=== PATIENT | female | born 1965 | race African-American/Black ===

== ENCOUNTER 2017-01-30 16:15 | Inpatient (IN) | payer OTHER ==
[~2017-01-30] VITALS: Ht 160 cm; Wt 57.3 kg
[~2017-01-30 16:15] MED LIST: ALPR0.5T PO; ALPR1TAB6 PO; ASPI-612 PO; CARV6.252 PO; LISI40TA PO; METF500T4 PO; MORP30TA83 PO; MUPI22OI2 TP; NITR0.4T SL; OXYC-328 PO; OXYC30TA PO; PIOG30TA41 PO; SERT50TA PO; SEVE400T PO; VENTOLIN HFA18 GM INH
--- NOTE | 2017-01-30 16:40 | PHYS DOC ---
Past Medical History Past Medical History: CAD, CHF, COPD, Diabetes-Type I, Heart Disease, Hypertension, Renal Failure Past Surgical History: Appendectomy, Hysterectomy Additional Past Surgical Histo: av fistula (left forearm), heart valve repair, 3 L) toe amputations, Alcohol Use: None Drug Use: None Adult General Chief Complaint Chief Complaint: SHORTNESS OF BREATH HPI HPI Patient is a 51 year old female who presents with complaint of shortness of breath. Patient states that her symptoms have been worsening over the past 2-3 days. Patient states that she has end-stage renal disease and has missed dialysis for approximately one week. Patient states that her sister recently which caused a disruption in her normal schedule. Patient denies any associated fevers or productive cough. Patient states that she has noticed swelling in her legs and states that she has had similar symptoms in the past which were attributed to fluid overload. Patient states that she is having severe dyspnea on exertion and is unable to walk normal distances without getting short of breath including across her own living room. Patient denies any chest pain but does state that she is having pain in her legs which she attributes to her swelling. Review of Systems Review of Systems Constitutional: Denies fever or chills [] Eyes: Denies change in visual acuity, redness, or eye pain [] HENT: Denies nasal congestion or sore throat [] Respiratory: Shortness of breath [] Cardiovascular: Dyspnea on exertion, lower extremity edema [] GI: Denies abdominal pain, nausea, vomiting, bloody stools or diarrhea [] : Denies dysuria or hematuria [] Musculoskeletal: Denies back pain or joint pain [] Integument: Right knee abrasion [] Neurologic: Denies headache, focal weakness or sensory changes [] Allergies Allergies Allergies Coded Allergies Type Severity Reaction Last Updated Verified No Known Drug Allergies 08/01/13 No Physical Exam Physical Exam Constitutional: Alert, afebrile, appears in moderate respiratory distress. [] HENT: Normocephalic, atraumatic, bilateral external ears normal, oropharynx moist, no oral exudates, nose normal. [] Eyes: PERRLA, EOMI, conjunctiva normal, no discharge. [] Neck: Normal range of motion, no tenderness, supple, no stridor. [] Cardiovascular:Heart rate regular rhythm, no murmur [] Lungs & Thorax: Moderate restriction of air movement bilaterally, no wheezes, fine rales in the bilateral lung bases [] Abdomen: Bowel sounds normal, soft, no tenderness, no masses, no pulsatile masses. [] Skin: Warm, dry, no erythema, no rash. [] Back: No tenderness, no CVA tenderness. [] Extremities: No tenderness, no cyanosis, no clubbing, ROM intact, 1+ pitting edema bilaterally. [] Neurologic: Alert and oriented X 3, normal motor function, normal sensory function, no focal deficits noted. [] Current Patient Data Vital Signs Vital Signs Date Time Temp Pulse Resp B/P (MAP) Pulse Ox O2 Delivery O2 Flow Rate FiO2 01/30/17 16:25 97.8 97 26 187/90 (122) 99 Nasal Cannula 3.0 97.8 EKG EKG Interpreted by me: Heart rate 94, sinus tachycardia, left axis deviation, normal intervals, no acute ST elevations or depressions [] Radiology/Procedures Radiology/Procedures One view AP chest x-ray interpreted by me: Bilateral pleural effusions, interstitial edema present, cardiomegaly [] Course & Med Decision Making Course & Med Decision Making Pertinent Labs and Imaging studies reviewed. (See chart for details) Patient was initiated on supplemental oxygen in the emergency department. Patient's workup shows evidence of fluid overload in due to lack of dialysis for the past week. The patient will need admission to the hospital due to acute respiratory distress. I spoke with Dr. Christy of nephrology who will consult on patient in hospital and will oversee patient's dialysis. Patient admitted to Dr. Miller. Radhika Disclaimer Radhika Disclaimer This electronic medical record was generated, in whole or in part, using a voice recognition dictation system. Departure Departure Impression: Primary Impression: Fluid overload Additional Impressions: Respiratory distress End stage renal disease Disposition: ADMITTED INPATIENT Admitting Physician: Cristina Miller Condition: GUARDED Referrals: NEMO ROTH (PCP) Problem Qualifiers Primary Impression: Fluid overload Hypervolemia type: unspecified Qualified Codes: E87.70 - Fluid overload, unspecified PHYLLIS GRUBER MD Jan 30, 2017 16:40
[2017-01-30 16:49] LABS: POTASSIUM ISTAT 4.6 mmol/L (3.5-5.0)
[2017-01-30 16:57] LABS: BASO % 1 % (0-3); EOS % 1 % (0-3); HEMATOCRIT 29.7 % (36.0-47.0); HEMOGLOBIN 9.8 g/dL (12.0-15.5); LYMPH # 1.1 x10^3/uL (1.0-4.8); LYMPH % 23 % (24-48); MEAN CORPUSCULAR HEMOGLOBIN 29 pg (25-35); MEAN CORPUSCULAR HGB CONC 33 g/dL (31-37); MEAN CORPUSCULAR VOLUME 87 fL (79-100); MONO % 6 % (0-9); NEUT % 69 % (31-73); PLATELET COUNT 136 x10^3/uL (140-400); RED BLOOD COUNT 3.43 x10^6/uL (3.50-5.40); RED CELL DISTRIBUTION WIDTH 17.9 % (11.5-14.5); WHITE BLOOD COUNT 4.9 x10^3/uL (4.0-11.0)
--- NOTE | 2017-01-30 17:01 | RAD ---
Indication shortness of breath and cough. A single view of the chest was obtained. Comparison is made to an examination 12/27/2016. Postoperative changes are noted as well as a defibrillating and bipolar cardiac pacing device. There is unchanged cardiomegaly. There are changes of congestive heart failure similar to the previous exam. There are bilateral pleural effusions right slightly greater than left also similar to the previous study. A consolidated pneumonia is not seen. IMPRESSION: Stable cardiomegaly. Persistent changes of congestive heart failure with bilateral pleural effusion similar to the previous exam
[2017-01-30 17:08] LABS: CALCIUM 8.8 mg/dL (8.5-10.1); CREATININE 9.5 mg/dL (0.6-1.0); GFR 5.2; POTASSIUM 4.7 mmol/L (3.5-5.1)
[2017-01-30 17:14] LABS: ALBUMIN 3.7 g/dL (3.4-5.0); ALBUMIN/GLOBULIN RATIO 0.7 (1.0-1.7); MAGNESIUM 2.7 mg/dL (1.8-2.4); PHOSPHORUS 7.8 mg/dL (2.6-4.7); TOTAL BILIRUBIN 0.9 mg/dL (0.2-1.0); TOTAL PROTEIN 8.7 g/dL (6.4-8.2)
--- NOTE | 2017-01-30 17:28 | PDOC1 ---
History and Physical Date of Admission Date of Admission 01/30/17 Identification/Chief Complaint Chief Complaint sob Problems: Source Source: Chart review, Patient History of Present Illness History of Present Illness HPI Patient is a 51 year old female who presents with complaint of shortness of breath for 1 week. Pt has CHF, ICD/PPM, copd, SMOKING, ESRD on HD MWF, uncompliant with HD, was just dced here on 12/30/2016 for same reason. pT uses home o2 3l, HER sister 1 week ago, for which , she was not at home for 1 week, not on home o2, not on HD for 1 week. She feels sob, with mild cough,still smoking 1ppd, no fever, chills. C/o bl leg swelling and chronic body and feet pain. still has good urine output no insurance to cover SNF. Past Medical History Cardiovascular: CAD, CHF, HTN, Hyperlipidemia Pulmonary: COPD CENTRAL NERVOUS SYSTEM: CVA Heme/Onc: Anemia NOS Renal/: Chronic renal failure Endocrine: Diabetes Past Surgical History Past Surgical History: Pacemaker, Appendectomy, CABG, Hysterectomy, Other Family History Family History: Diabetes Social History Smoke: 1 pack per day ALCOHOL: none Drugs: None Current Problem List Problem List Problems Medical Problems: (1) End stage renal disease Status: Acute (2) Fluid overload Status: Acute (3) Respiratory distress Status: Acute Allergies Allergies Allergies Coded Allergies Type Severity Reaction Last Updated Verified No Known Drug Allergies 08/01/13 No ROS Review of System CONSTITUTIONAL: No fever or chills EYES: No recent changes SKIN: No rash or itching CARDIOVASCULAR: No chest pain, syncope, palpitations, or edema RESPIRATORY: No SOB or cough GASTROINTESTINAL: No nausea, vomiting or abdominal pain NEUROLOGICAL: No headaches or weakness ENDOCRINE: No cold or heat intolerance GENITOURINARY: No urgency or frequency of urination MUSCULOSKELETAL: No back pain or joint pain LYMPHATICS: No enlarged lymph nodes PSYCHIATRIC: No anxiety or depression Physical Exam Physical Exam GEN.: No apparent distress. Alert and oriented. bl blind. HEENT: Head is normocephalic, atraumatic NECK: Supple. LUNGS: bl decreased bs. HEART: RRR, S1, S2 present. Peripheral pulses intact ABDOMEN: Soft, nontender. Positive bowel sounds. EXTREMITIES: Without any cyanosis. bl leg 1 + edema NEUROLOGIC: Normal speech, normal tone PSYCHIATRIC: Normal affect, normal mood. SKIN: No ulcerations Vitals Vitals Vital Signs Date Time Temp Pulse Resp B/P (MAP) Pulse Ox O2 Delivery O2 Flow Rate FiO2 01/30/17 16:25 97.8 97 26 187/90 (122) 99 Nasal Cannula 3.0 97.8 Labs Labs Laboratory Tests Test 01/30/17 16:36 01/30/17 16:41 White Blood Count 4.9 x10^3/uL (4.0-11.0) Red Blood Count 3.43 x10^6/uL (3.50-5.40) Hemoglobin 9.8 g/dL (12.0-15.5) Hematocrit 29.7 % (36.0-47.0) Mean Corpuscular Volume 87 fL (79-100) Mean Corpuscular Hemoglobin 29 pg (25-35) Mean Corpuscular Hemoglobin Concent 33 g/dL (31-37) Red Cell Distribution Width 17.9 % (11.5-14.5) Platelet Count 136 x10^3/uL (140-400) Neutrophils (%) (Auto) 69 % (31-73) Lymphocytes (%) (Auto) 23 % (24-48) Monocytes (%) (Auto) 6 % (0-9) Eosinophils (%) (Auto) 1 % (0-3) Basophils (%) (Auto) 1 % (0-3) Neutrophils # (Auto) 3.4 x10^3uL (1.8-7.7) Lymphocytes # (Auto) 1.1 x10^3/uL (1.0-4.8) Monocytes # (Auto) 0.3 x10^3/uL (0.0-1.1) Eosinophils # (Auto) 0.0 x10^3/uL (0.0-0.7) Basophils # (Auto) 0.0 x10^3/uL (0.0-0.2) Sodium Level 143 mmol/L (136-145) Potassium Level 4.7 mmol/L (3.5-5.1) Chloride Level 104 mmol/L (98-107) Carbon Dioxide Level 16 mmol/L (21-32) Anion Gap 23 (6-14) 19 mmol/L (6-14) Blood Urea Nitrogen 104 mg/dL (7-20) Creatinine 9.5 mg/dL (0.6-1.0) Estimated GFR (Cockcroft-Gault) 5.2 BUN/Creatinine Ratio 11 (6-20) Glucose Level 147 mg/dL (70-99) 143 mg/dL (70-99) Calcium Level 8.8 mg/dL (8.5-10.1) Phosphorus Level 7.8 mg/dL (2.6-4.7) Magnesium Level 2.7 mg/dL (1.8-2.4) Total Bilirubin 0.9 mg/dL (0.2-1.0) Aspartate Amino Transf (AST/SGOT) 12 U/L (15-37) Alanine Aminotransferase (ALT/SGPT) 15 U/L (14-59) Alkaline Phosphatase 95 U/L (46-116) Total Protein 8.7 g/dL (6.4-8.2) Albumin 3.7 g/dL (3.4-5.0) Albumin/Globulin Ratio 0.7 (1.0-1.7) Bedside Hemoglobin 10.5 g/dL (12-15) Bedside Hematocrit 31 % (36-40) Bedside Sodium 142 mmol/L (135-145) Bedside Potassium 4.6 mmol/L (3.5-5.0) Bedside Chloride 112 mmol/L (98-110) Bedside Total CO2 16 mmol/L (23-32) Bedside Blood Urea Nitrogen 93 mg/dL (8-26) Bedside Creatinine 10.3 mg/dL (0.5-1.4) Bedside Ionized Calcium (Julia) 1.10 mmol/L (1.13-1.32) Laboratory Tests Test 01/30/17 16:36 01/30/17 16:41 White Blood Count 4.9 x10^3/uL (4.0-11.0) Red Blood Count 3.43 x10^6/uL (3.50-5.40) Hemoglobin 9.8 g/dL (12.0-15.5) Hematocrit 29.7 % (36.0-47.0) Mean Corpuscular Volume 87 fL (79-100) Mean Corpuscular Hemoglobin 29 pg (25-35) Mean Corpuscular Hemoglobin Concent 33 g/dL (31-37) Red Cell Distribution Width 17.9 % (11.5-14.5) Platelet Count 136 x10^3/uL (140-400) Neutrophils (%) (Auto) 69 % (31-73) Lymphocytes (%) (Auto) 23 % (24-48) Monocytes (%) (Auto) 6 % (0-9) Eosinophils (%) (Auto) 1 % (0-3) Basophils (%) (Auto) 1 % (0-3) Neutrophils # (Auto) 3.4 x10^3uL (1.8-7.7) Lymphocytes # (Auto) 1.1 x10^3/uL (1.0-4.8) Monocytes # (Auto) 0.3 x10^3/uL (0.0-1.1) Eosinophils # (Auto) 0.0 x10^3/uL (0.0-0.7) Basophils # (Auto) 0.0 x10^3/uL (0.0-0.2) Sodium Level 143 mmol/L (136-145) Potassium Level 4.7 mmol/L (3.5-5.1) Chloride Level 104 mmol/L (98-107) Carbon Dioxide Level 16 mmol/L (21-32) Anion Gap 23 (6-14) 19 mmol/L (6-14) Blood Urea Nitrogen 104 mg/dL (7-20) Creatinine 9.5 mg/dL (0.6-1.0) Estimated GFR (Cockcroft-Gault) 5.2 BUN/Creatinine Ratio 11 (6-20) Glucose Level 147 mg/dL (70-99) 143 mg/dL (70-99) Calcium Level 8.8 mg/dL (8.5-10.1) Phosphorus Level 7.8 mg/dL (2.6-4.7) Magnesium Level 2.7 mg/dL (1.8-2.4) Total Bilirubin 0.9 mg/dL (0.2-1.0) Aspartate Amino Transf (AST/SGOT) 12 U/L (15-37) Alanine Aminotransferase (ALT/SGPT) 15 U/L (14-59) Alkaline Phosphatase 95 U/L (46-116) Total Protein 8.7 g/dL (6.4-8.2) Albumin 3.7 g/dL (3.4-5.0) Albumin/Globulin Ratio 0.7 (1.0-1.7) Bedside Hemoglobin 10.5 g/dL (12-15) Bedside Hematocrit 31 % (36-40) Bedside Sodium 142 mmol/L (135-145) Bedside Potassium 4.6 mmol/L (3.5-5.0) Bedside Chloride 112 mmol/L (98-110) Bedside Total CO2 16 mmol/L (23-32) Bedside Blood Urea Nitrogen 93 mg/dL (8-26) Bedside Creatinine 10.3 mg/dL (0.5-1.4) Bedside Ionized Calcium (Julia) 1.10 mmol/L (1.13-1.32) VTE Prophylaxis Ordered VTE Prophylaxis Devices: Yes VTE Pharmacological Prophylaxi: Yes Assessment/Plan Assessment/Plan 1. sob, pulmonary edema with CHF exacerbation, systolic with EF 30% 2012 , MISSing HD 1 week 2. SYSTolic CHF with PPM/ICD 3. ESRD on HD MWF 4. Afib, s/p ablation and pacer placement 5. DM2, not on insulin 6. HTN 7. COPD , tobaccoism 8. anemia: 2/2 ESRD 9. chronic body pain 10. umbilical hernia: easily reducible. 11. Leg pain, peripharal neuropathy 12. protein malnutrition 13. UNCOMPLiance of medical care 14. bl blind 15. chronic constipation on opiods plan: renal consult , need HD SW , unfortunately , no insurance to cover SNF, but cover HD transportation [place] cont home meds stool softner dvt ppx PTOT albuterol prn SSI. admit >2night SARAHI PHILLIPS MD Jan 30, 2017 17:27
[2017-01-30] MEDS ORDERED: NITROGLYCERIN SUBLINGUAL 0.4 MG BOTTLE OF 25. SL PRN (17:45)
[2017-01-30] MEDS ORDERED: ONDANSETRON PF 4 MG/2 ML VIAL. IV PRN (17:45)
[2017-01-30] MEDS ORDERED: hydrALAZINE 20 MG/ML VIAL. IVP PRN (17:45)
[2017-01-30] MEDS ORDERED: ACETAMINOPHEN 325 MG TABLET. PO PRN (17:45)
[2017-01-30] MEDS ORDERED: ALBUTEROL SULFATE 2.5 MG/3 ML NEBU. NEB PRN (17:45)
[2017-01-30] MEDS ORDERED: DEXTROSE 50% 25 GM / 50ML DISP.SYRIN. IV PRN (17:45)
[2017-01-30 18:00] VITALS: BP 176/87
[2017-01-30] MEDS ORDERED: metFORMIN 500 MG TABLET PO SCH (18:00)
[2017-01-30] MEDS: CARVEDILOL 6.25 MG TABLET. PO SCH (18:15)
[2017-01-30] MEDS: MORPHINE SULFATE 2 MG/ML DISP.SYRIN. IV PRN ×2 (18:15→20:23)
[2017-01-30] MEDS: SEVELAMER CARBONATE 800 MG TABLET. PO SCH (18:15)
[2017-01-30] MEDS: ALPRAZolam 0.5 MG TABLET PO SCH (19:40)
[2017-01-30] MEDS: oxyCODONE/APAP 10/325 1 TAB TABLET PO PRN (20:28)
[2017-01-30] MEDS: HEPARIN PF for SUB-Q USE 5,000 UNIT/0.5 ML VIAL. SQ SCH (20:29)
[2017-01-31] VITALS (7 sets, daily range): BP systolic 122–152; BP diastolic 71–92
[2017-01-31] MEDS: MORPHINE SULFATE 2 MG/ML DISP.SYRIN. IV PRN ×6 (00:47→22:16)
[2017-01-31] MEDS: oxyCODONE/APAP 10/325 1 TAB TABLET PO PRN (05:57)
[2017-01-31] MEDS: HEPARIN PF for SUB-Q USE 5,000 UNIT/0.5 ML VIAL. SQ SCH ×3 (05:58→22:17)
--- NOTE | 2017-01-31 06:07 | EKG ---
[facility] [address] [place] [address] Test Date: 2017-01-30 Test Time: 16:42:19 Pat Name: ORAL MAGALLANES Department: Room: 521 1 Gender: F Bottom Saw Operator: : 1965 Requested By: PHYLLIS GRUBER Order Number: [id number] Reading MD: Conrad Ledezma Measurements Intervals [place] Rate: 94 P: 58 OR: 170 QRS: -56 QRSD: 94 T: 99 QT: 392 QTc: 490 Interpretive Statements SINUS RHYTHM LEFT ATRIAL ABNORMALITY ABNORMAL LEFT AXIS DEVIATION LOW LIMB LEAD VOLTAGE QRS(T) CONTOUR ABNORMALITY CONSISTENT WITH ANTEROLATERAL INFARCT PROBABLY OLD CONSISTENT WITH INFERIOR INFARCT PROBABLY OLD RI6.01 Unconfirmed report Compared to ECG 12/23/2016 19:04:59 No significant changes Electronically Signed On 02-05-2017 9:21:36 CDT by Conrad Ledezma
[2017-01-31 06:14] LABS: BASO % 1 % (0-3); EOS % 3 % (0-3); HEMATOCRIT 28.5 % (36.0-47.0); HEMOGLOBIN 9.1 g/dL (12.0-15.5); LYMPH # 1.3 x10^3/uL (1.0-4.8); LYMPH % 27 % (24-48); MEAN CORPUSCULAR HEMOGLOBIN 28 pg (25-35); MEAN CORPUSCULAR HGB CONC 32 g/dL (31-37); MEAN CORPUSCULAR VOLUME 88 fL (79-100); MONO % 6 % (0-9); NEUT % 63 % (31-73); PLATELET COUNT 132 x10^3/uL (140-400); RED BLOOD COUNT 3.25 x10^6/uL (3.50-5.40); WHITE BLOOD COUNT 4.7 x10^3/uL (4.0-11.0)
[2017-01-31 06:29] LABS: CALCIUM 8.6 mg/dL (8.5-10.1); CREATININE 9.6 mg/dL (0.6-1.0); GFR 5.2
--- NOTE | 2017-01-31 07:29 | ACF ---
Admission Forms Criteria RENAL FAILURE, CHRONIC Clinical Indications for Admission to Inpatient Care (Place 'X' for any and all applicable criteria): Admission is indicated for ANY ONE of the following (1)(2)(3)(4)(5): [X]I. Inpatient admission required rather than observation care (Use Renal Failure, Chronic: Observation Care Criteria as appropriate) because of ANY ONE of the following: [X]a) Volume overload or uremic symptoms (eg, clinically significant pulmonary edema, hypertension, pericarditis, acidosis) too severe for, or not responsive (eg, for over 24 hours) to emergency department or observation care dialysis or treatment regimen (11) [ ]b) Hemodynamic instability that is severe or persistent [ ]c) Respiratory distress that is severe or persistent (11) [ ]d) Clinically significant electrolyte abnormality that requires inpatient care (eg,hyperkalemia with severe ECG findings)[B] [ ]e) Supplement O2 or respiratory therapy for over 24hrs that is performable only in acute inpatient setting [ ]f) Continuous IV infusion of anticoagulation, platelet inhibitor, vasoactive, or Antiarrhythmic medication (15), [ ]g) Pulmonary artery catheter monitoring [ ]h) Temporary pacemaker placement [ ]i) Emergent pericardiocentesis [ ]j) Other condition, treatment or monitoring requiring inpatient admission [ ]II. Unexplained syncope [A] [ ]III. Recurrent seizures [ ]IV. Severe infections not treatable in outpatient setting (eg, peritonitis)(9 ) [ ]V. Cardiac arrhythmias of immediate concern [ ]. Encephalopathy [ ]VII.Bleeding abnormalities (eg, platelet dysfunction) with active (eg, gastrointestinal) bleeding Extended stay beyond goal length of stay may be needed for (3)(4)(35)(36): [ ]a) Continuing uremic complications [ ]b) Comorbidities or complications The original [facility] content created by [employer] has been revised. The portions of the content which have been revised are identified through the use of italic text or in bold, and [facility] has neither reviewed nor approved the modified material. All other unmodified content is copyright [employer]. Please see references footnoted in the original [facility] [facility] edition 2016 Admission Criteria Met?: Yes EZ ALBERT Jan 31, 2017 07:29
[2017-01-31] MEDS: CARVEDILOL 6.25 MG TABLET. PO SCH ×2 (08:00→17:25)
[2017-01-31] MEDS: INSULIN ASPART 300 UNITS/3 ML INSULN.PEN SQ SCH ×3 (08:00→17:00)
[2017-01-31] MEDS: SEVELAMER CARBONATE 800 MG TABLET. PO SCH ×2 (08:00→17:24)
[2017-01-31] MEDS ORDERED: LIDOCAINE 1% PF 2 ML VIAL. ID STA (08:51)
[2017-01-31] MEDS: PIOGLITAZONE 15 MG TABLET. PO SCH (09:00)
[2017-01-31] MEDS ORDERED: diphenhydrAMINE 50 MG/ML VIAL IV PRN ×2 (09:00)
[2017-01-31] MEDS ORDERED: DIALYSIS PATIENT. MC PRN (09:00)
[2017-01-31] MEDS ORDERED: IV NORMAL SALINE 1000ML BAG 1,000 ML IV PRN ×2 (09:00)
[2017-01-31] MEDS: ALPRAZolam 0.5 MG TABLET PO SCH ×3 (09:00→22:16)
--- NOTE | 2017-01-31 10:22 | PDOC2 ---
CONSULT Date of Consult Date of Consult DATE: 01/31/17 TIME: 10:19 Reason for Consult Reason for Consult: ESRD Referring Physician Referring Physician: Dr Panda Identification/Chief Complaint Chief Complaint sob Problems: Source Source: Chart review, Patient History of Present Illness Reason for Visit: as dictated Past Medical History Cardiovascular: CAD, CHF, HTN, Hyperlipidemia Pulmonary: COPD CENTRAL NERVOUS SYSTEM: CVA Heme/Onc: Anemia NOS Musculoskeletal: Osteoarthritis, Other Renal/: Chronic renal failure Endocrine: Diabetes Past Surgical History Past Surgical History: Pacemaker, Appendectomy, CABG, Hysterectomy, Other Family History Family History: Diabetes Social History 1 pack per day ALCOHOL: none Drugs: None Lives: Alone Current Problem List Problem List Problems Medical Problems: (1) End stage renal disease Status: Acute (2) Fluid overload Status: Acute (3) Respiratory distress Status: Acute Current Medications Current Medications Current Medications Acetaminophen (Tylenol) 650 mg PRN Q6HRS PRN PO FEVER; Start 01/30/17 at 17:45 Ondansetron HCl (Zofran) 4 mg PRN Q6HRS PRN IV NAUSEA/VOMITING; Start 01/30/17 at 17:45 Morphine Sulfate 2 mg PRN Q2HR PRN IV PAIN Last administered on 01/31/17 08:12 ; Start 01/30/17 at 17:45 Tramadol HCl (Ultram) 50 mg PRN Q6HRS PRN PO PAIN; Start 01/30/17 at 17:45 Hydralazine HCl (Apresoline) 10 mg PRN Q4HRS PRN IVP ELEVATED BP, SEE COMMENTS ; Start 01/30/17 at 17:45 Docusate Sodium (Colace) 100 mg PRN DAILY PRN PO CONSTIPATION; Start 01/30/17 at 17:45 Heparin Sodium (Porcine) (Heparin Sq) 5,000 unit Q8HRS SQ Last administered on 01/31/17 05:58; Start 01/30/17 at 22:00 Alprazolam (Xanax) 0.5 mg BID PO Last administered on 01/30/17 19:40; Start 01/30/17 at 21:00 Aspirin (Ecotrin) 81 mg DAILYWBKFT PO ; Start 01/31/17 at 08:00 Carvedilol (Coreg) 6.25 mg BIDWMEALS PO Last administered on 01/30/17 18:15; Start 01/30/17 at 18:00 Lisinopril (Prinivil) 20 mg DAILY PO ; Start 01/31/17 at 09:00 Metformin HCl (Glucophage) 500 mg BIDWMEALS PO ; Start 01/30/17 at 18:00; Stop at 18:00; Status DC Nitroglycerin (Nitrostat) 0.4 mg PRN Q5MIN PRN SL CHEST PAIN; Start 01/30/17 at 17:45 Oxycodone/ Acetaminophen (Percocet 10/325) 1 tab PRN Q6HRS PRN PO PAIN Last administered on 01/31/17 05:57; Start 01/30/17 at 17:45 Sertraline HCl (Zoloft) 50 mg DAILY PO ; Start 01/31/17 at 09:00 Pioglitazone HCl (Actos) 30 mg DAILY PO ; Start 01/31/17 at 09:00 Sevelamer Carbonate (Renvela) 400 mg BIDWMEALS PO Last administered on 18:15; Start 01/30/17 at 18:00 Insulin Aspart (NovoLOG) 0-9 UNITS TIDWMEALS SQ ; Start 01/31/17 at 08:00 Dextrose (Dextrose 50%-Water Syringe) 12.5 gm PRN Q15MIN PRN IV SEE COMMENTS; Start 01/30/17 at 17:45 Albuterol Sulfate (Ventolin Neb Soln) 2.5 mg PRN Q4HRS PRN NEB COUGH; Start 01/30/17 at 17:45 Sodium Chloride 1,000 ml @ 1,000 mls/hr Q1H PRN IV hypotension; Start 01/31/17 at 09:00; Stop 01/31/17 at 16:00 Diphenhydramine HCl (Benadryl) 25 mg 1X PRN PRN IV ITCHING; Start 01/31/17 at 09 :00; Stop 01/31/17 at 16:00 Diphenhydramine HCl (Benadryl) 25 mg 1X PRN PRN IV ITCHING; Start 01/31/17 at 09 :00; Stop 01/31/17 at 16:00 Sodium Chloride 1,000 ml @ 400 mls/hr Q2H30M PRN IV PATENCY; Start 01/31/17 at 09:00; Stop 01/31/17 at 16:00 Info (PHARMACY MONITORING -- do not chart) 1 each PRN DAILY PRN MC SEE COMMENTS ; Start 01/31/17 at 09:00 Lidocaine HCl (Xylocaine-Mpf 1% Vial) 0.5 ml 1X STAT ID Last administered on t 09:40; Start 01/31/17 at 08:51; Stop 01/31/17 at 08:56; Status DC Active Scripts Active Renagel (Sevelamer Hcl) 400 Mg Tablet 400 Mg PO BID Aspirin Ec (Aspirin) 81 Mg Tablet.dr 81 Mg PO DAILYWBKFT Reported Xanax (Alprazolam) 0.5 Mg Tablet 1 Tab PO BID Percocet 10-325 Mg Tablet (Oxycodone/Acetaminophen) 1 Each Tablet 1 Tab PO PRN Q6HRS PRN Mupirocin Ointment (Mupirocin) 22 Gm Oint...g. 1 Bradly TP BID PRN Nitrostat (Nitroglycerin) 0.4 Mg Tab.subl 0.4 Mg SL PRN Q5MIN PRN Actos (Pioglitazone Hcl) 30 Mg Tablet 1 Tab PO DAILY Zoloft (Sertraline Hcl) 50 Mg Tablet 1 Tab PO DAILY Carvedilol 6.25 Mg Tablet 1 Tab PO BID Lisinopril 40 Mg Tablet 0.5 Tab PO DAILY Metformin Hcl 500 Mg Tablet 1 Tab PO BID Allergies Allergies: Coded Allergies: No Known Drug Allergies (Unverified , 08/01/13) ROS Review of System GEN: no Fevers no Chills EYES: no Visual Complaints ENT: no EN Drainage no Hearing deficiets CVS: + Orthopnea no CP RESP: + SOB + ESPINAL GI: no Nausea no Vomiting : no Dysuria no Urgency HEME: no easy bruising no Palp Ly Nodes NEURO no Focal Weakness no Sz PSYCH: no Suicidal Ideation no Depression SKIN: no Rashes ENDO: no Polyuria or Polydipsia no Hot/Cold Intolerance MU SK: no Arthralgia no Myalgia Physical Exam Physical Exam General Appearance: Awake Alert Oriented x 3 In no Distress Eyes: VIsion Unchanged Conjunctiva Normal EN: No EN Drainage Mucous Memb. moist Neck: min JVD + JVP Supple no Thyromegaly CVS: S1 S2 + Murmur No Gallop No Rub + Edema Resp: frank Rales no Rhonchi no Acc. Muscle use GI: BAS +ve NO Bruit Non Tender Non Distended : no CVA tenderness; no Suprapubic Tenderness SKIN: no Rashes Breast Exam deferred Mu.Sk: Adequate ROM no Muscle Atrophy Heme: Unable to palpate Obvious LAD no Splenomegaly NEURO: Good Strength and Tone Cranial Nerves II - XII grossly intact Psych: no Depressed no Active hallucination Vital Signs Vital Signs Date Time Temp Pulse Resp B/P (MAP) Pulse Ox O2 Delivery O2 Flow Rate FiO2 01/31/17 08:12 18 Nasal Cannula 3.0 01/31/17 07:25 100 01/31/17 07:00 97.3 80 144/90 (108) 97.3 Assessment & Plan ESRD - Seen on HD michelle well sofar: Vital on HD : 153/82 78 afeb Dialysis as below F 180 NR 3.0 Hrs 2 K 2.5 Ca 140 Na 40 HC03 Qb 350 + Qd 500+ Heparin 0 Units Uf 4 Kgs or to dry weight as tolerated May give 25-50 gms of 25% Albumin if needed to maintain Hemodynamic stability Treatment plan reviewed and discussed with search engine optimizer Anemia: Epogen Transfuse with next HD as needed. HTN: Current BP meds reviewed. See orders for changes. Bone & Mineral: follow phos and alter binder regimen as needed SOB/ hypervolemia - due to missed HD - Uf wtih Hd, extra HD in am Discussed Plan of Care and prognosis etc. at length withpt Labs Labs Laboratory Tests Test 01/30/17 16:36 01/30/17 16:41 01/30/17 18:16 01/30/17 20:31 White Blood Count 4.9 x10^3/uL (4.0-11.0) Red Blood Count 3.43 x10^6/uL (3.50-5.40) Hemoglobin 9.8 g/dL (12.0-15.5) Hematocrit 29.7 % (36.0-47.0) Mean Corpuscular Volume 87 fL (79-100) Mean Corpuscular Hemoglobin 29 pg (25-35) Mean Corpuscular Hemoglobin Concent 33 g/dL (31-37) Red Cell Distribution Width 17.9 % (11.5-14.5) Platelet Count 136 x10^3/uL (140-400) Neutrophils (%) (Auto) 69 % (31-73) Lymphocytes (%) (Auto) 23 % (24-48) Monocytes (%) (Auto) 6 % (0-9) Eosinophils (%) (Auto) 1 % (0-3) Basophils (%) (Auto) 1 % (0-3) Neutrophils # (Auto) 3.4 x10^3uL (1.8-7.7) Lymphocytes # (Auto) 1.1 x10^3/uL (1.0-4.8) Monocytes # (Auto) 0.3 x10^3/uL (0.0-1.1) Eosinophils # (Auto) 0.0 x10^3/uL (0.0-0.7) Basophils # (Auto) 0.0 x10^3/uL (0.0-0.2) Sodium Level 143 mmol/L (136-145) Potassium Level 4.7 mmol/L (3.5-5.1) Chloride Level 104 mmol/L (98-107) Carbon Dioxide Level 16 mmol/L (21-32) Anion Gap 23 (6-14) 19 mmol/L (6-14) Blood Urea Nitrogen 104 mg/dL (7-20) Creatinine 9.5 mg/dL (0.6-1.0) Estimated GFR (Cockcroft-Gault) 5.2 BUN/Creatinine Ratio 11 (6-20) Glucose Level 147 mg/dL (70-99) 143 mg/dL (70-99) Calcium Level 8.8 mg/dL (8.5-10.1) Phosphorus Level 7.8 mg/dL (2.6-4.7) Magnesium Level 2.7 mg/dL (1.8-2.4) Total Bilirubin 0.9 mg/dL (0.2-1.0) Aspartate Amino Transf (AST/SGOT) 12 U/L (15-37) Alanine Aminotransferase (ALT/SGPT) 15 U/L (14-59) Alkaline Phosphatase 95 U/L (46-116) Total Protein 8.7 g/dL (6.4-8.2) Albumin 3.7 g/dL (3.4-5.0) Albumin/Globulin Ratio 0.7 (1.0-1.7) Bedside Hemoglobin 10.5 g/dL (12-15) Bedside Hematocrit 31 % (36-40) Bedside Sodium 142 mmol/L (135-145) Bedside Potassium 4.6 mmol/L (3.5-5.0) Bedside Chloride 112 mmol/L (98-110) Bedside Total CO2 16 mmol/L (23-32) Bedside Blood Urea Nitrogen 93 mg/dL (8-26) Bedside Creatinine 10.3 mg/dL (0.5-1.4) Bedside Ionized Calcium (Julia) 1.10 mmol/L (1.13-1.32) Glucose (Fingerstick) 167 mg/dL (70-99) 207 mg/dL (70-99) Test 01/31/17 05:25 01/31/17 05:35 01/31/17 07:44 Sodium Level 142 mmol/L (136-145) Potassium Level 5.0 mmol/L (3.5-5.1) Chloride Level 106 mmol/L (98-107) Carbon Dioxide Level 14 mmol/L (21-32) Anion Gap 22 (6-14) Blood Urea Nitrogen 107 mg/dL (7-20) Creatinine 9.6 mg/dL (0.6-1.0) Estimated GFR (Cockcroft-Gault) 5.2 Glucose Level 123 mg/dL (70-99) Calcium Level 8.6 mg/dL (8.5-10.1) White Blood Count 4.7 x10^3/uL (4.0-11.0) Red Blood Count 3.25 x10^6/uL (3.50-5.40) Hemoglobin 9.1 g/dL (12.0-15.5) Hematocrit 28.5 % (36.0-47.0) Mean Corpuscular Volume 88 fL (79-100) Mean Corpuscular Hemoglobin 28 pg (25-35) Mean Corpuscular Hemoglobin Concent 32 g/dL (31-37) Red Cell Distribution Width 18.0 % (11.5-14.5) Platelet Count 132 x10^3/uL (140-400) Neutrophils (%) (Auto) 63 % (31-73) Lymphocytes (%) (Auto) 27 % (24-48) Monocytes (%) (Auto) 6 % (0-9) Eosinophils (%) (Auto) 3 % (0-3) Basophils (%) (Auto) 1 % (0-3) Neutrophils # (Auto) 3.0 x10^3uL (1.8-7.7) Lymphocytes # (Auto) 1.3 x10^3/uL (1.0-4.8) Monocytes # (Auto) 0.3 x10^3/uL (0.0-1.1) Eosinophils # (Auto) 0.2 x10^3/uL (0.0-0.7) Basophils # (Auto) 0.0 x10^3/uL (0.0-0.2) Glucose (Fingerstick) 118 mg/dL (70-99) Laboratory Tests Test 01/30/17 16:36 01/30/17 16:41 01/30/17 18:16 01/30/17 20:31 White Blood Count 4.9 x10^3/uL (4.0-11.0) Red Blood Count 3.43 x10^6/uL (3.50-5.40) Hemoglobin 9.8 g/dL (12.0-15.5) Hematocrit 29.7 % (36.0-47.0) Mean Corpuscular Volume 87 fL (79-100) Mean Corpuscular Hemoglobin 29 pg (25-35) Mean Corpuscular Hemoglobin Concent 33 g/dL (31-37) Red Cell Distribution Width 17.9 % (11.5-14.5) Platelet Count 136 x10^3/uL (140-400) Neutrophils (%) (Auto) 69 % (31-73) Lymphocytes (%) (Auto) 23 % (24-48) Monocytes (%) (Auto) 6 % (0-9) Eosinophils (%) (Auto) 1 % (0-3) Basophils (%) (Auto) 1 % (0-3) Neutrophils # (Auto) 3.4 x10^3uL (1.8-7.7) Lymphocytes # (Auto) 1.1 x10^3/uL (1.0-4.8) Monocytes # (Auto) 0.3 x10^3/uL (0.0-1.1) Eosinophils # (Auto) 0.0 x10^3/uL (0.0-0.7) Basophils # (Auto) 0.0 x10^3/uL (0.0-0.2) Sodium Level 143 mmol/L (136-145) Potassium Level 4.7 mmol/L (3.5-5.1) Chloride Level 104 mmol/L (98-107) Carbon Dioxide Level 16 mmol/L (21-32) Anion Gap 23 (6-14) 19 mmol/L (6-14) Blood Urea Nitrogen 104 mg/dL (7-20) Creatinine 9.5 mg/dL (0.6-1.0) Estimated GFR (Cockcroft-Gault) 5.2 BUN/Creatinine Ratio 11 (6-20) Glucose Level 147 mg/dL (70-99) 143 mg/dL (70-99) Calcium Level 8.8 mg/dL (8.5-10.1) Phosphorus Level 7.8 mg/dL (2.6-4.7) Magnesium Level 2.7 mg/dL (1.8-2.4) Total Bilirubin 0.9 mg/dL (0.2-1.0) Aspartate Amino Transf (AST/SGOT) 12 U/L (15-37) Alanine Aminotransferase (ALT/SGPT) 15 U/L (14-59) Alkaline Phosphatase 95 U/L (46-116) Total Protein 8.7 g/dL (6.4-8.2) Albumin 3.7 g/dL (3.4-5.0) Albumin/Globulin Ratio 0.7 (1.0-1.7) Bedside Hemoglobin 10.5 g/dL (12-15) Bedside Hematocrit 31 % (36-40) Bedside Sodium 142 mmol/L (135-145) Bedside Potassium 4.6 mmol/L (3.5-5.0) Bedside Chloride 112 mmol/L (98-110) Bedside Total CO2 16 mmol/L (23-32) Bedside Blood Urea Nitrogen 93 mg/dL (8-26) Bedside Creatinine 10.3 mg/dL (0.5-1.4) Bedside Ionized Calcium (Julia) 1.10 mmol/L (1.13-1.32) Glucose (Fingerstick) 167 mg/dL (70-99) 207 mg/dL (70-99) Test 01/31/17 05:25 01/31/17 05:35 01/31/17 07:44 Sodium Level 142 mmol/L (136-145) Potassium Level 5.0 mmol/L (3.5-5.1) Chloride Level 106 mmol/L (98-107) Carbon Dioxide Level 14 mmol/L (21-32) Anion Gap 22 (6-14) Blood Urea Nitrogen 107 mg/dL (7-20) Creatinine 9.6 mg/dL (0.6-1.0) Estimated GFR (Cockcroft-Gault) 5.2 Glucose Level 123 mg/dL (70-99) Calcium Level 8.6 mg/dL (8.5-10.1) White Blood Count 4.7 x10^3/uL (4.0-11.0) Red Blood Count 3.25 x10^6/uL (3.50-5.40) Hemoglobin 9.1 g/dL (12.0-15.5) Hematocrit 28.5 % (36.0-47.0) Mean Corpuscular Volume 88 fL (79-100) Mean Corpuscular Hemoglobin 28 pg (25-35) Mean Corpuscular Hemoglobin Concent 32 g/dL (31-37) Red Cell Distribution Width 18.0 % (11.5-14.5) Platelet Count 132 x10^3/uL (140-400) Neutrophils (%) (Auto) 63 % (31-73) Lymphocytes (%) (Auto) 27 % (24-48) Monocytes (%) (Auto) 6 % (0-9) Eosinophils (%) (Auto) 3 % (0-3) Basophils (%) (Auto) 1 % (0-3) Neutrophils # (Auto) 3.0 x10^3uL (1.8-7.7) Lymphocytes # (Auto) 1.3 x10^3/uL (1.0-4.8) Monocytes # (Auto) 0.3 x10^3/uL (0.0-1.1) Eosinophils # (Auto) 0.2 x10^3/uL (0.0-0.7) Basophils # (Auto) 0.0 x10^3/uL (0.0-0.2) Glucose (Fingerstick) 118 mg/dL (70-99) Images Images IMPRESSION: Stable cardiomegaly. Persistent changes of congestive heart failure with bilateral pleural effusion similar to the previous exam VINCENZO PLUMMER MD Jan 31, 2017 10:22
[2017-01-31] MEDS: SERTRALINE 50 MG TABLET. PO SCH (14:32)
[2017-01-31] MEDS: ASPIRIN ENTERIC COATED 81 MG TABLET.DR. PO SCH (14:33)
[2017-01-31] MEDS: LISINOPRIL 20 MG TABLET PO SCH (14:33)
--- NOTE | 2017-01-31 15:24 | PDOC ---
PROGRESS NOTES Chief Complaint Chief Complaint 1. sob, pulmonary edema with CHF exacerbation, systolic with EF 30% 2012 , MISSing HD 1 week 2. SYSTolic CHF with PPM/ICD 3. ESRD on HD MWF 4. Afib, s/p ablation and pacer placement 5. DM2, not on insulin 6. HTN 7. COPD , tobaccoism 8. anemia: 2/2 ESRD 9. chronic body pain 10. umbilical hernia: easily reducible. 11. Leg pain, peripharal neuropathy 12. protein malnutrition 13. UNCOMPLiance of medical care 14. bl blind 15. chronic constipation on opiods History of Present Illness History of Present Illness Pt seen and examined on HD DW RN Pt vomitting Vitals Vitals Vital Signs Date Time Temp Pulse Resp B/P (MAP) Pulse Ox O2 Delivery O2 Flow Rate FiO2 01/31/17 15:02 18 Nasal Cannula 2.0 01/31/17 14:33 77 150/88 01/31/17 13:40 97.9 97 97.9 Physical Exam General: Alert, Oriented X3 Heart: Regular rate, Normal S1, Normal S2 Lungs: Clear Abdomen: Other (nauseated, decreased bowel sounds) Extremities: No clubbing, No cyanosis Skin: No rashes, No breakdown Labs LABS Laboratory Tests Test 01/30/17 16:36 01/30/17 16:41 01/30/17 18:16 01/30/17 20:31 White Blood Count 4.9 x10^3/uL (4.0-11.0) Red Blood Count 3.43 x10^6/uL (3.50-5.40) Hemoglobin 9.8 g/dL (12.0-15.5) Hematocrit 29.7 % (36.0-47.0) Mean Corpuscular Volume 87 fL (79-100) Mean Corpuscular Hemoglobin 29 pg (25-35) Mean Corpuscular Hemoglobin Concent 33 g/dL (31-37) Red Cell Distribution Width 17.9 % (11.5-14.5) Platelet Count 136 x10^3/uL (140-400) Neutrophils (%) (Auto) 69 % (31-73) Lymphocytes (%) (Auto) 23 % (24-48) Monocytes (%) (Auto) 6 % (0-9) Eosinophils (%) (Auto) 1 % (0-3) Basophils (%) (Auto) 1 % (0-3) Neutrophils # (Auto) 3.4 x10^3uL (1.8-7.7) Lymphocytes # (Auto) 1.1 x10^3/uL (1.0-4.8) Monocytes # (Auto) 0.3 x10^3/uL (0.0-1.1) Eosinophils # (Auto) 0.0 x10^3/uL (0.0-0.7) Basophils # (Auto) 0.0 x10^3/uL (0.0-0.2) Sodium Level 143 mmol/L (136-145) Potassium Level 4.7 mmol/L (3.5-5.1) Chloride Level 104 mmol/L (98-107) Carbon Dioxide Level 16 mmol/L (21-32) Anion Gap 23 (6-14) 19 mmol/L (6-14) Blood Urea Nitrogen 104 mg/dL (7-20) Creatinine 9.5 mg/dL (0.6-1.0) Estimated GFR (Cockcroft-Gault) 5.2 BUN/Creatinine Ratio 11 (6-20) Glucose Level 147 mg/dL (70-99) 143 mg/dL (70-99) Calcium Level 8.8 mg/dL (8.5-10.1) Phosphorus Level 7.8 mg/dL (2.6-4.7) Magnesium Level 2.7 mg/dL (1.8-2.4) Total Bilirubin 0.9 mg/dL (0.2-1.0) Aspartate Amino Transf (AST/SGOT) 12 U/L (15-37) Alanine Aminotransferase (ALT/SGPT) 15 U/L (14-59) Alkaline Phosphatase 95 U/L (46-116) Total Protein 8.7 g/dL (6.4-8.2) Albumin 3.7 g/dL (3.4-5.0) Albumin/Globulin Ratio 0.7 (1.0-1.7) Bedside Hemoglobin 10.5 g/dL (12-15) Bedside Hematocrit 31 % (36-40) Bedside Sodium 142 mmol/L (135-145) Bedside Potassium 4.6 mmol/L (3.5-5.0) Bedside Chloride 112 mmol/L (98-110) Bedside Total CO2 16 mmol/L (23-32) Bedside Blood Urea Nitrogen 93 mg/dL (8-26) Bedside Creatinine 10.3 mg/dL (0.5-1.4) Bedside Ionized Calcium (Julia) 1.10 mmol/L (1.13-1.32) Glucose (Fingerstick) 167 mg/dL (70-99) 207 mg/dL (70-99) Test 01/31/17 05:25 01/31/17 05:35 01/31/17 07:44 01/31/17 11:29 Sodium Level 142 mmol/L (136-145) Potassium Level 5.0 mmol/L (3.5-5.1) Chloride Level 106 mmol/L (98-107) Carbon Dioxide Level 14 mmol/L (21-32) Anion Gap 22 (6-14) Blood Urea Nitrogen 107 mg/dL (7-20) Creatinine 9.6 mg/dL (0.6-1.0) Estimated GFR (Cockcroft-Gault) 5.2 Glucose Level 123 mg/dL (70-99) Calcium Level 8.6 mg/dL (8.5-10.1) White Blood Count 4.7 x10^3/uL (4.0-11.0) Red Blood Count 3.25 x10^6/uL (3.50-5.40) Hemoglobin 9.1 g/dL (12.0-15.5) Hematocrit 28.5 % (36.0-47.0) Mean Corpuscular Volume 88 fL (79-100) Mean Corpuscular Hemoglobin 28 pg (25-35) Mean Corpuscular Hemoglobin Concent 32 g/dL (31-37) Red Cell Distribution Width 18.0 % (11.5-14.5) Platelet Count 132 x10^3/uL (140-400) Neutrophils (%) (Auto) 63 % (31-73) Lymphocytes (%) (Auto) 27 % (24-48) Monocytes (%) (Auto) 6 % (0-9) Eosinophils (%) (Auto) 3 % (0-3) Basophils (%) (Auto) 1 % (0-3) Neutrophils # (Auto) 3.0 x10^3uL (1.8-7.7) Lymphocytes # (Auto) 1.3 x10^3/uL (1.0-4.8) Monocytes # (Auto) 0.3 x10^3/uL (0.0-1.1) Eosinophils # (Auto) 0.2 x10^3/uL (0.0-0.7) Basophils # (Auto) 0.0 x10^3/uL (0.0-0.2) Glucose (Fingerstick) 118 mg/dL (70-99) 98 mg/dL (70-99) Review of Systems Review of Systems co nausea co pain Assessment and Plan Assessmemt and Plan Problems Medical Problems: (1) End stage renal disease Status: Acute (2) Fluid overload Status: Acute (3) Respiratory distress Status: Acute 1. sob, pulmonary edema with CHF exacerbation, systolic with EF 30% 2012 , MISSing HD 1 week 2. SYSTolic CHF with PPM/ICD 3. ESRD on HD MWF 4. Afib, s/p ablation and pacer placement 5. DM2, not on insulin 6. HTN 7. COPD , tobaccoism 8. anemia: 2/2 ESRD 9. chronic body pain 10. umbilical hernia: easily reducible. 11. Leg pain, peripharal neuropathy 12. protein malnutrition 13. UNCOMPLiance of medical care 14. bl blind 15. chronic constipation on opiods Plan Daily HD until she is at her baseline wt Repeat labs Home meds PTOT Prognosis is poor snf as she keeps skipping HD Problems: Comment Review of Relevant I have reviewed the following items serg (where applicable) has been applied. Labs Laboratory Tests Test 01/30/17 16:36 01/30/17 16:41 01/30/17 18:16 01/30/17 20:31 White Blood Count 4.9 x10^3/uL (4.0-11.0) Red Blood Count 3.43 x10^6/uL (3.50-5.40) Hemoglobin 9.8 g/dL (12.0-15.5) Hematocrit 29.7 % (36.0-47.0) Mean Corpuscular Volume 87 fL (79-100) Mean Corpuscular Hemoglobin 29 pg (25-35) Mean Corpuscular Hemoglobin Concent 33 g/dL (31-37) Red Cell Distribution Width 17.9 % (11.5-14.5) Platelet Count 136 x10^3/uL (140-400) Neutrophils (%) (Auto) 69 % (31-73) Lymphocytes (%) (Auto) 23 % (24-48) Monocytes (%) (Auto) 6 % (0-9) Eosinophils (%) (Auto) 1 % (0-3) Basophils (%) (Auto) 1 % (0-3) Neutrophils # (Auto) 3.4 x10^3uL (1.8-7.7) Lymphocytes # (Auto) 1.1 x10^3/uL (1.0-4.8) Monocytes # (Auto) 0.3 x10^3/uL (0.0-1.1) Eosinophils # (Auto) 0.0 x10^3/uL (0.0-0.7) Basophils # (Auto) 0.0 x10^3/uL (0.0-0.2) Sodium Level 143 mmol/L (136-145) Potassium Level 4.7 mmol/L (3.5-5.1) Chloride Level 104 mmol/L (98-107) Carbon Dioxide Level 16 mmol/L (21-32) Anion Gap 23 (6-14) 19 mmol/L (6-14) Blood Urea Nitrogen 104 mg/dL (7-20) Creatinine 9.5 mg/dL (0.6-1.0) Estimated GFR (Cockcroft-Gault) 5.2 BUN/Creatinine Ratio 11 (6-20) Glucose Level 147 mg/dL (70-99) 143 mg/dL (70-99) Calcium Level 8.8 mg/dL (8.5-10.1) Phosphorus Level 7.8 mg/dL (2.6-4.7) Magnesium Level 2.7 mg/dL (1.8-2.4) Total Bilirubin 0.9 mg/dL (0.2-1.0) Aspartate Amino Transf (AST/SGOT) 12 U/L (15-37) Alanine Aminotransferase (ALT/SGPT) 15 U/L (14-59) Alkaline Phosphatase 95 U/L (46-116) Total Protein 8.7 g/dL (6.4-8.2) Albumin 3.7 g/dL (3.4-5.0) Albumin/Globulin Ratio 0.7 (1.0-1.7) Bedside Hemoglobin 10.5 g/dL (12-15) Bedside Hematocrit 31 % (36-40) Bedside Sodium 142 mmol/L (135-145) Bedside Potassium 4.6 mmol/L (3.5-5.0) Bedside Chloride 112 mmol/L (98-110) Bedside Total CO2 16 mmol/L (23-32) Bedside Blood Urea Nitrogen 93 mg/dL (8-26) Bedside Creatinine 10.3 mg/dL (0.5-1.4) Bedside Ionized Calcium (Julia) 1.10 mmol/L (1.13-1.32) Glucose (Fingerstick) 167 mg/dL (70-99) 207 mg/dL (70-99) Test 01/31/17 05:25 01/31/17 05:35 01/31/17 07:44 01/31/17 11:29 Sodium Level 142 mmol/L (136-145) Potassium Level 5.0 mmol/L (3.5-5.1) Chloride Level 106 mmol/L (98-107) Carbon Dioxide Level 14 mmol/L (21-32) Anion Gap 22 (6-14) Blood Urea Nitrogen 107 mg/dL (7-20) Creatinine 9.6 mg/dL (0.6-1.0) Estimated GFR (Cockcroft-Gault) 5.2 Glucose Level 123 mg/dL (70-99) Calcium Level 8.6 mg/dL (8.5-10.1) White Blood Count 4.7 x10^3/uL (4.0-11.0) Red Blood Count 3.25 x10^6/uL (3.50-5.40) Hemoglobin 9.1 g/dL (12.0-15.5) Hematocrit 28.5 % (36.0-47.0) Mean Corpuscular Volume 88 fL (79-100) Mean Corpuscular Hemoglobin 28 pg (25-35) Mean Corpuscular Hemoglobin Concent 32 g/dL (31-37) Red Cell Distribution Width 18.0 % (11.5-14.5) Platelet Count 132 x10^3/uL (140-400) Neutrophils (%) (Auto) 63 % (31-73) Lymphocytes (%) (Auto) 27 % (24-48) Monocytes (%) (Auto) 6 % (0-9) Eosinophils (%) (Auto) 3 % (0-3) Basophils (%) (Auto) 1 % (0-3) Neutrophils # (Auto) 3.0 x10^3uL (1.8-7.7) Lymphocytes # (Auto) 1.3 x10^3/uL (1.0-4.8) Monocytes # (Auto) 0.3 x10^3/uL (0.0-1.1) Eosinophils # (Auto) 0.2 x10^3/uL (0.0-0.7) Basophils # (Auto) 0.0 x10^3/uL (0.0-0.2) Glucose (Fingerstick) 118 mg/dL (70-99) 98 mg/dL (70-99) Laboratory Tests Test 01/30/17 16:36 01/30/17 16:41 01/30/17 18:16 01/30/17 20:31 White Blood Count 4.9 x10^3/uL (4.0-11.0) Red Blood Count 3.43 x10^6/uL (3.50-5.40) Hemoglobin 9.8 g/dL (12.0-15.5) Hematocrit 29.7 % (36.0-47.0) Mean Corpuscular Volume 87 fL (79-100) Mean Corpuscular Hemoglobin 29 pg (25-35) Mean Corpuscular Hemoglobin Concent 33 g/dL (31-37) Red Cell Distribution Width 17.9 % (11.5-14.5) Platelet Count 136 x10^3/uL (140-400) Neutrophils (%) (Auto) 69 % (31-73) Lymphocytes (%) (Auto) 23 % (24-48) Monocytes (%) (Auto) 6 % (0-9) Eosinophils (%) (Auto) 1 % (0-3) Basophils (%) (Auto) 1 % (0-3) Neutrophils # (Auto) 3.4 x10^3uL (1.8-7.7) Lymphocytes # (Auto) 1.1 x10^3/uL (1.0-4.8) Monocytes # (Auto) 0.3 x10^3/uL (0.0-1.1) Eosinophils # (Auto) 0.0 x10^3/uL (0.0-0.7) Basophils # (Auto) 0.0 x10^3/uL (0.0-0.2) Sodium Level 143 mmol/L (136-145) Potassium Level 4.7 mmol/L (3.5-5.1) Chloride Level 104 mmol/L (98-107) Carbon Dioxide Level 16 mmol/L (21-32) Anion Gap 23 (6-14) 19 mmol/L (6-14) Blood Urea Nitrogen 104 mg/dL (7-20) Creatinine 9.5 mg/dL (0.6-1.0) Estimated GFR (Cockcroft-Gault) 5.2 BUN/Creatinine Ratio 11 (6-20) Glucose Level 147 mg/dL (70-99) 143 mg/dL (70-99) Calcium Level 8.8 mg/dL (8.5-10.1) Phosphorus Level 7.8 mg/dL (2.6-4.7) Magnesium Level 2.7 mg/dL (1.8-2.4) Total Bilirubin 0.9 mg/dL (0.2-1.0) Aspartate Amino Transf (AST/SGOT) 12 U/L (15-37) Alanine Aminotransferase (ALT/SGPT) 15 U/L (14-59) Alkaline Phosphatase 95 U/L (46-116) Total Protein 8.7 g/dL (6.4-8.2) Albumin 3.7 g/dL (3.4-5.0) Albumin/Globulin Ratio 0.7 (1.0-1.7) Bedside Hemoglobin 10.5 g/dL (12-15) Bedside Hematocrit 31 % (36-40) Bedside Sodium 142 mmol/L (135-145) Bedside Potassium 4.6 mmol/L (3.5-5.0) Bedside Chloride 112 mmol/L (98-110) Bedside Total CO2 16 mmol/L (23-32) Bedside Blood Urea Nitrogen 93 mg/dL (8-26) Bedside Creatinine 10.3 mg/dL (0.5-1.4) Bedside Ionized Calcium (Julia) 1.10 mmol/L (1.13-1.32) Glucose (Fingerstick) 167 mg/dL (70-99) 207 mg/dL (70-99) Test 01/31/17 05:25 01/31/17 05:35 01/31/17 07:44 01/31/17 11:29 Sodium Level 142 mmol/L (136-145) Potassium Level 5.0 mmol/L (3.5-5.1) Chloride Level 106 mmol/L (98-107) Carbon Dioxide Level 14 mmol/L (21-32) Anion Gap 22 (6-14) Blood Urea Nitrogen 107 mg/dL (7-20) Creatinine 9.6 mg/dL (0.6-1.0) Estimated GFR (Cockcroft-Gault) 5.2 Glucose Level 123 mg/dL (70-99) Calcium Level 8.6 mg/dL (8.5-10.1) White Blood Count 4.7 x10^3/uL (4.0-11.0) Red Blood Count 3.25 x10^6/uL (3.50-5.40) Hemoglobin 9.1 g/dL (12.0-15.5) Hematocrit 28.5 % (36.0-47.0) Mean Corpuscular Volume 88 fL (79-100) Mean Corpuscular Hemoglobin 28 pg (25-35) Mean Corpuscular Hemoglobin Concent 32 g/dL (31-37) Red Cell Distribution Width 18.0 % (11.5-14.5) Platelet Count 132 x10^3/uL (140-400) Neutrophils (%) (Auto) 63 % (31-73) Lymphocytes (%) (Auto) 27 % (24-48) Monocytes (%) (Auto) 6 % (0-9) Eosinophils (%) (Auto) 3 % (0-3) Basophils (%) (Auto) 1 % (0-3) Neutrophils # (Auto) 3.0 x10^3uL (1.8-7.7) Lymphocytes # (Auto) 1.3 x10^3/uL (1.0-4.8) Monocytes # (Auto) 0.3 x10^3/uL (0.0-1.1) Eosinophils # (Auto) 0.2 x10^3/uL (0.0-0.7) Basophils # (Auto) 0.0 x10^3/uL (0.0-0.2) Glucose (Fingerstick) 118 mg/dL (70-99) 98 mg/dL (70-99) Medications Current Medications Acetaminophen (Tylenol) 650 mg PRN Q6HRS PRN PO FEVER; Start 01/30/17 at 17:45 Ondansetron HCl (Zofran) 4 mg PRN Q6HRS PRN IV NAUSEA/VOMITING Last administered on 01/31/17 10:56; Start 01/30/17 at 17:45 Morphine Sulfate 2 mg PRN Q2HR PRN IV PAIN Last administered on 01/31/17 14:32 ; Start 01/30/17 at 17:45 Tramadol HCl (Ultram) 50 mg PRN Q6HRS PRN PO PAIN; Start 01/30/17 at 17:45 Hydralazine HCl (Apresoline) 10 mg PRN Q4HRS PRN IVP ELEVATED BP, SEE COMMENTS ; Start 01/30/17 at 17:45 Docusate Sodium (Colace) 100 mg PRN DAILY PRN PO CONSTIPATION; Start 01/30/17 at 17:45 Heparin Sodium (Porcine) (Heparin Sq) 5,000 unit Q8HRS SQ Last administered on 01/31/17 13:48; Start 01/30/17 at 22:00 Alprazolam (Xanax) 0.5 mg BID PO Last administered on 01/31/17 14:33; Start 01/30/17 at 21:00 Aspirin (Ecotrin) 81 mg DAILYWBKFT PO Last administered on 01/31/17 14:33; Start 01/31/17 at 08:00 Carvedilol (Coreg) 6.25 mg BIDWMEALS PO Last administered on 01/30/17 18:15; Start 01/30/17 at 18:00 Lisinopril (Prinivil) 20 mg DAILY PO Last administered on 01/31/17 14:33; Start 01/31/17 at 09:00 Metformin HCl (Glucophage) 500 mg BIDWMEALS PO ; Start 01/30/17 at 18:00; Stop at 18:00; Status DC Nitroglycerin (Nitrostat) 0.4 mg PRN Q5MIN PRN SL CHEST PAIN; Start 01/30/17 at 17:45 Oxycodone/ Acetaminophen (Percocet 10/325) 1 tab PRN Q6HRS PRN PO PAIN Last administered on 01/31/17 05:57; Start 01/30/17 at 17:45 Sertraline HCl (Zoloft) 50 mg DAILY PO Last administered on 01/31/17 14:32; Start 01/31/17 at 09:00 Pioglitazone HCl (Actos) 30 mg DAILY PO ; Start 01/31/17 at 09:00 Sevelamer Carbonate (Renvela) 400 mg BIDWMEALS PO Last administered on 18:15; Start 01/30/17 at 18:00 Insulin Aspart (NovoLOG) 0-9 UNITS TIDWMEALS SQ ; Start 01/31/17 at 08:00 Dextrose (Dextrose 50%-Water Syringe) 12.5 gm PRN Q15MIN PRN IV SEE COMMENTS; Start 01/30/17 at 17:45 Albuterol Sulfate (Ventolin Neb Soln) 2.5 mg PRN Q4HRS PRN NEB COUGH Last administered on 01/31/17 11:53; Start 01/30/17 at 17:45 Sodium Chloride 1,000 ml @ 1,000 mls/hr Q1H PRN IV hypotension; Start 01/31/17 at 09:00; Stop 01/31/17 at 16:00 Diphenhydramine HCl (Benadryl) 25 mg 1X PRN PRN IV ITCHING; Start 01/31/17 at 09 :00; Stop 01/31/17 at 16:00 Diphenhydramine HCl (Benadryl) 25 mg 1X PRN PRN IV ITCHING; Start 01/31/17 at 09 :00; Stop 01/31/17 at 16:00 Sodium Chloride 1,000 ml @ 400 mls/hr Q2H30M PRN IV PATENCY; Start 01/31/17 at 09:00; Stop 01/31/17 at 16:00 Info (PHARMACY MONITORING -- do not chart) 1 each PRN DAILY PRN MC SEE COMMENTS ; Start 01/31/17 at 09:00 Lidocaine HCl (Xylocaine-Mpf 1% Vial) 0.5 ml 1X STAT ID Last administered on 09:40; Start 01/31/17 at 08:51; Stop 01/31/17 at 08:56; Status DC Active Scripts Active Renagel (Sevelamer Hcl) 400 Mg Tablet 400 Mg PO BID Aspirin Ec (Aspirin) 81 Mg Tablet.dr 81 Mg PO DAILYWBKFT Reported Xanax (Alprazolam) 0.5 Mg Tablet 1 Tab PO BID Percocet 10-325 Mg Tablet (Oxycodone/Acetaminophen) 1 Each Tablet 1 Tab PO PRN Q6HRS PRN Mupirocin Ointment (Mupirocin) 22 Gm Oint...g. 1 Bradly TP BID PRN Nitrostat (Nitroglycerin) 0.4 Mg Tab.subl 0.4 Mg SL PRN Q5MIN PRN Actos (Pioglitazone Hcl) 30 Mg Tablet 1 Tab PO DAILY Zoloft (Sertraline Hcl) 50 Mg Tablet 1 Tab PO DAILY Carvedilol 6.25 Mg Tablet 1 Tab PO BID Lisinopril 40 Mg Tablet 0.5 Tab PO DAILY Metformin Hcl 500 Mg Tablet 1 Tab PO BID Vitals/I & O Vital Sign - Last 24 Hours 01/30/17 01/30/17 01/30/17 01/30/17 16:25 17:00 17:30 17:47 Temp 97.8 97.8 Pulse 97 66 92 92 Resp 26 21 22 22 B/P (MAP) 187/90 (122) 185/91 (122) 174/100 (124) 160/88 (112) Pulse Ox 99 97 98 98 O2 Delivery Nasal Cannula Nasal Cannula Nasal Cannula Nasal Cannula O2 Flow Rate 3.0 3.0 3.0 3.0 01/30/17 01/30/17 01/30/17 01/30/17 18:00 18:15 18:15 18:35 Temp 96.6 96.6 Pulse 99 93 Resp 20 B/P (MAP) 176/87 (116) 176/87 Pulse Ox 100 99 O2 Delivery Nasal Cannula Nasal Cannula Nasal Cannula O2 Flow Rate 3.0 3.0 3.0 01/30/17 01/30/17 01/30/17 01/30/17 19:49 20:23 20:28 20:35 Resp 18 20 Pulse Ox 99 98 O2 Delivery Nasal Cannula Room Air Nasal Cannula Nasal Cannula O2 Flow Rate 3.0 3.0 3.0 01/30/17 01/30/17 01/31/17 01/31/17 21:16 22:59 00:47 03:00 Temp 97.7 97.7 Pulse 77 Resp 18 18 18 B/P (MAP) 139/89 (106) Pulse Ox 98 100 O2 Delivery Nasal Cannula Nasal Cannula O2 Flow Rate 3.0 01/31/17 01/31/17 01/31/17 01/31/17 05:52 05:57 06:33 07:00 Temp 97.3 97.3 Pulse 80 Resp 18 18 22 B/P (MAP) 144/90 (108) Pulse Ox 100 100 100 93 O2 Delivery Nasal Cannula Nasal Cannula Nasal Cannula O2 Flow Rate 3.0 3.0 3.0 01/31/17 01/31/17 01/31/17 01/31/17 07:25 08:00 08:12 11:00 Pulse 83 Resp 18 B/P (MAP) 142/83 (102) Pulse Ox 100 O2 Delivery Nasal Cannula Nasal Cannula Nasal Cannula O2 Flow Rate 3.0 3.0 3.0 01/31/17 01/31/17 01/31/17 01/31/17 11:07 11:53 13:40 14:32 Temp 97.9 97.9 Pulse 79 Resp 24 20 18 B/P (MAP) 150/88 (108) Pulse Ox 94 91 97 O2 Delivery Nasal Cannula Nasal Cannula Nasal Cannula Nasal Cannula O2 Flow Rate 3.0 3.0 3.0 2.0 01/31/17 01/31/17 14:33 15:02 Pulse 77 Resp 18 B/P (MAP) 150/88 O2 Delivery Nasal Cannula O2 Flow Rate 2.0 Intake and Output 01/30/17 01/30/17 01/31/17 15:00 23:00 07:00 Intake Total 200 ml Output Total 0 ml Balance 200 ml TRISTON CONTRERAS III DO Jan 31, 2017 15:24
--- NOTE | 2017-02-01 01:22 | CONS ---
DATE OF CONSULTATION: PRIMARY PHYSICIAN: Dr. Panda. REASON FOR CONSULTATION: ESRD dialysis. HISTORY OF PRESENT ILLNESS: The patient is a pleasant 51-year-old -Malag[place] female followed by ____. Her sister apparently and she had to attend to those issues. She missed 1 week of dialysis and presented with increasing shortness of breath and dyspnea on exertion. We were asked to see her for the same. She has been dialyzed for about a week as reported to us. She denies fevers, chills. Chest x-ray did show significant CHF. We will hence dialyze her today, tomorrow and then back to her outpatient schedule. The patient was seen on dialysis as documented in the electronic renal consult note. VINCENZO PLUMMER MD DR: SAMIR/adiel JOB#: [id number] / [id number]
[2017-02-01 03:00] VITALS: BP 132/87
[2017-02-01] MEDS: HEPARIN PF for SUB-Q USE 5,000 UNIT/0.5 ML VIAL. SQ SCH ×3 (06:30→20:32)
[2017-02-01 07:15] VITALS: BP 136/73
[2017-02-01] MEDS: INSULIN ASPART 300 UNITS/3 ML INSULN.PEN SQ SCH ×3 (08:00→17:09)
[2017-02-01] MEDS: MORPHINE SULFATE 2 MG/ML DISP.SYRIN. IV PRN ×5 (09:06→22:39)
[2017-02-01] MEDS: ALPRAZolam 0.5 MG TABLET PO SCH ×2 (09:07→20:25)
[2017-02-01] MEDS ORDERED: LIDOCAINE 1% PF 2 ML VIAL. INJ ONE (09:45)
--- NOTE | 2017-02-01 11:57 | PDOC ---
PROGRESS NOTES Chief Complaint Chief Complaint 1. sob, pulmonary edema with CHF exacerbation, systolic with EF 30% 2012 , MISSing HD 1 week 2. SYSTolic CHF with PPM/ICD 3. ESRD on HD MWF 4. Afib, s/p ablation and pacer placement 5. DM2, not on insulin 6. HTN 7. COPD , tobaccoism 8. anemia: 2/2 ESRD 9. chronic body pain 10. umbilical hernia: easily reducible. 11. Leg pain, peripharal neuropathy 12. protein malnutrition 13. UNCOMPLiance of medical care 14. bl blind 15. chronic constipation on opiods History of Present Illness History of Present Illness Pt seen and examined on HD again days in a row (miss 2 weeks) CARIE RN Co weakness Vitals Vitals Vital Signs Date Time Temp Pulse Resp B/P (MAP) Pulse Ox O2 Delivery O2 Flow Rate FiO2 02/01/17 09:06 100 Nasal Cannula 3.0 02/01/17 07:15 96.3 77 18 136/73 (94) 96.3 Physical Exam General: Alert, Oriented X3 Heart: Regular rate, Normal S1, Normal S2 Lungs: Clear Abdomen: Other (nauseated, decreased bowel sounds) Extremities: No clubbing, No cyanosis Skin: No rashes, No breakdown Labs LABS Laboratory Tests Test 01/31/17 16:54 01/31/17 20:40 02/01/17 07:27 Glucose (Fingerstick) 95 mg/dL (70-99) 103 mg/dL (70-99) 74 mg/dL (70-99) Review of Systems Review of Systems co weakness co soa Assessment and Plan Assessmemt and Plan Problems Medical Problems: (1) End stage renal disease Status: Acute (2) Fluid overload Status: Acute (3) Respiratory distress Status: Acute 1. sob, pulmonary edema with CHF exacerbation, systolic with EF 30% 2012 , MISSing HD 1 week 2. SYSTolic CHF with PPM/ICD 3. ESRD on HD MWF 4. Afib, s/p ablation and pacer placement 5. DM2, not on insulin 6. HTN 7. COPD , tobaccoism 8. anemia: 2/2 ESRD 9. chronic body pain 10. umbilical hernia: easily reducible. 11. Leg pain, peripharal neuropathy 12. protein malnutrition 13. UNCOMPLiance of medical care 14. bl blind 15. chronic constipation on opiods Plan Cont HD daily Recheck labs PTOT Home meds Counceled her to not miss HD in future Pro guarded Problems: Comment Review of Relevant I have reviewed the following items serg (where applicable) has been applied. Labs Laboratory Tests Test 01/30/17 16:36 01/30/17 16:41 01/30/17 18:16 01/30/17 20:31 White Blood Count 4.9 x10^3/uL (4.0-11.0) Red Blood Count 3.43 x10^6/uL (3.50-5.40) Hemoglobin 9.8 g/dL (12.0-15.5) Hematocrit 29.7 % (36.0-47.0) Mean Corpuscular Volume 87 fL (79-100) Mean Corpuscular Hemoglobin 29 pg (25-35) Mean Corpuscular Hemoglobin Concent 33 g/dL (31-37) Red Cell Distribution Width 17.9 % (11.5-14.5) Platelet Count 136 x10^3/uL (140-400) Neutrophils (%) (Auto) 69 % (31-73) Lymphocytes (%) (Auto) 23 % (24-48) Monocytes (%) (Auto) 6 % (0-9) Eosinophils (%) (Auto) 1 % (0-3) Basophils (%) (Auto) 1 % (0-3) Neutrophils # (Auto) 3.4 x10^3uL (1.8-7.7) Lymphocytes # (Auto) 1.1 x10^3/uL (1.0-4.8) Monocytes # (Auto) 0.3 x10^3/uL (0.0-1.1) Eosinophils # (Auto) 0.0 x10^3/uL (0.0-0.7) Basophils # (Auto) 0.0 x10^3/uL (0.0-0.2) Sodium Level 143 mmol/L (136-145) Potassium Level 4.7 mmol/L (3.5-5.1) Chloride Level 104 mmol/L (98-107) Carbon Dioxide Level 16 mmol/L (21-32) Anion Gap 23 (6-14) 19 mmol/L (6-14) Blood Urea Nitrogen 104 mg/dL (7-20) Creatinine 9.5 mg/dL (0.6-1.0) Estimated GFR (Cockcroft-Gault) 5.2 BUN/Creatinine Ratio 11 (6-20) Glucose Level 147 mg/dL (70-99) 143 mg/dL (70-99) Calcium Level 8.8 mg/dL (8.5-10.1) Phosphorus Level 7.8 mg/dL (2.6-4.7) Magnesium Level 2.7 mg/dL (1.8-2.4) Total Bilirubin 0.9 mg/dL (0.2-1.0) Aspartate Amino Transf (AST/SGOT) 12 U/L (15-37) Alanine Aminotransferase (ALT/SGPT) 15 U/L (14-59) Alkaline Phosphatase 95 U/L (46-116) Total Protein 8.7 g/dL (6.4-8.2) Albumin 3.7 g/dL (3.4-5.0) Albumin/Globulin Ratio 0.7 (1.0-1.7) Bedside Hemoglobin 10.5 g/dL (12-15) Bedside Hematocrit 31 % (36-40) Bedside Sodium 142 mmol/L (135-145) Bedside Potassium 4.6 mmol/L (3.5-5.0) Bedside Chloride 112 mmol/L (98-110) Bedside Total CO2 16 mmol/L (23-32) Bedside Blood Urea Nitrogen 93 mg/dL (8-26) Bedside Creatinine 10.3 mg/dL (0.5-1.4) Bedside Ionized Calcium (Julia) 1.10 mmol/L (1.13-1.32) Glucose (Fingerstick) 167 mg/dL (70-99) 207 mg/dL (70-99) Test 01/31/17 05:25 01/31/17 05:35 01/31/17 07:44 01/31/17 11:29 Sodium Level 142 mmol/L (136-145) Potassium Level 5.0 mmol/L (3.5-5.1) Chloride Level 106 mmol/L (98-107) Carbon Dioxide Level 14 mmol/L (21-32) Anion Gap 22 (6-14) Blood Urea Nitrogen 107 mg/dL (7-20) Creatinine 9.6 mg/dL (0.6-1.0) Estimated GFR (Cockcroft-Gault) 5.2 Glucose Level 123 mg/dL (70-99) Calcium Level 8.6 mg/dL (8.5-10.1) Hepatitis B Surface Antigen Negative (Negative) White Blood Count 4.7 x10^3/uL (4.0-11.0) Red Blood Count 3.25 x10^6/uL (3.50-5.40) Hemoglobin 9.1 g/dL (12.0-15.5) Hematocrit 28.5 % (36.0-47.0) Mean Corpuscular Volume 88 fL (79-100) Mean Corpuscular Hemoglobin 28 pg (25-35) Mean Corpuscular Hemoglobin Concent 32 g/dL (31-37) Red Cell Distribution Width 18.0 % (11.5-14.5) Platelet Count 132 x10^3/uL (140-400) Neutrophils (%) (Auto) 63 % (31-73) Lymphocytes (%) (Auto) 27 % (24-48) Monocytes (%) (Auto) 6 % (0-9) Eosinophils (%) (Auto) 3 % (0-3) Basophils (%) (Auto) 1 % (0-3) Neutrophils # (Auto) 3.0 x10^3uL (1.8-7.7) Lymphocytes # (Auto) 1.3 x10^3/uL (1.0-4.8) Monocytes # (Auto) 0.3 x10^3/uL (0.0-1.1) Eosinophils # (Auto) 0.2 x10^3/uL (0.0-0.7) Basophils # (Auto) 0.0 x10^3/uL (0.0-0.2) Glucose (Fingerstick) 118 mg/dL (70-99) 98 mg/dL (70-99) Test 01/31/17 16:54 01/31/17 20:40 02/01/17 07:27 Glucose (Fingerstick) 95 mg/dL (70-99) 103 mg/dL (70-99) 74 mg/dL (70-99) Laboratory Tests Test 01/31/17 16:54 01/31/17 20:40 02/01/17 07:27 Glucose (Fingerstick) 95 mg/dL (70-99) 103 mg/dL (70-99) 74 mg/dL (70-99) Medications Current Medications Acetaminophen (Tylenol) 650 mg PRN Q6HRS PRN PO FEVER; Start 01/30/17 at 17:45 Ondansetron HCl (Zofran) 4 mg PRN Q6HRS PRN IV NAUSEA/VOMITING Last administered on 01/31/17 10:56; Start 01/30/17 at 17:45 Morphine Sulfate 2 mg PRN Q2HR PRN IV PAIN Last administered on 02/01/17 09:06 ; Start 01/30/17 at 17:45 Tramadol HCl (Ultram) 50 mg PRN Q6HRS PRN PO PAIN; Start 01/30/17 at 17:45 Hydralazine HCl (Apresoline) 10 mg PRN Q4HRS PRN IVP ELEVATED BP, SEE COMMENTS ; Start 01/30/17 at 17:45 Docusate Sodium (Colace) 100 mg PRN DAILY PRN PO CONSTIPATION; Start 01/30/17 at 17:45 Heparin Sodium (Porcine) (Heparin Sq) 5,000 unit Q8HRS SQ Last administered on 02/01/17 06:30; Start 01/30/17 at 22:00 Alprazolam (Xanax) 0.5 mg BID PO Last administered on 02/01/17 09:07; Start 01/30/17 at 21:00 Aspirin (Ecotrin) 81 mg DAILYWBKFT PO Last administered on 01/31/17 14:33; Start 01/31/17 at 08:00 Carvedilol (Coreg) 6.25 mg BIDWMEALS PO Last administered on 01/31/17 17:25; Start 01/30/17 at 18:00 Lisinopril (Prinivil) 20 mg DAILY PO Last administered on 01/31/17 14:33; Start 01/31/17 at 09:00 Metformin HCl (Glucophage) 500 mg BIDWMEALS PO ; Start 01/30/17 at 18:00; Stop at 18:00; Status DC Nitroglycerin (Nitrostat) 0.4 mg PRN Q5MIN PRN SL CHEST PAIN; Start 01/30/17 at 17:45 Oxycodone/ Acetaminophen (Percocet 10/325) 1 tab PRN Q6HRS PRN PO PAIN Last administered on 01/31/17 05:57; Start 01/30/17 at 17:45 Sertraline HCl (Zoloft) 50 mg DAILY PO Last administered on 01/31/17 14:32; Start 01/31/17 at 09:00 Pioglitazone HCl (Actos) 30 mg DAILY PO ; Start 01/31/17 at 09:00 Sevelamer Carbonate (Renvela) 400 mg BIDWMEALS PO Last administered on 17:24; Start 01/30/17 at 18:00 Insulin Aspart (NovoLOG) 0-9 UNITS TIDWMEALS SQ ; Start 01/31/17 at 08:00 Dextrose (Dextrose 50%-Water Syringe) 12.5 gm PRN Q15MIN PRN IV SEE COMMENTS; Start 01/30/17 at 17:45 Albuterol Sulfate (Ventolin Neb Soln) 2.5 mg PRN Q4HRS PRN NEB COUGH Last administered on 01/31/17 11:53; Start 01/30/17 at 17:45 Sodium Chloride 1,000 ml @ 1,000 mls/hr Q1H PRN IV hypotension; Start 01/31/17 at 09:00; Stop 01/31/17 at 16:00; Status DC Diphenhydramine HCl (Benadryl) 25 mg 1X PRN PRN IV ITCHING; Start 01/31/17 at 09 :00; Stop 01/31/17 at 16:00; Status DC Diphenhydramine HCl (Benadryl) 25 mg 1X PRN PRN IV ITCHING; Start 01/31/17 at 09 :00; Stop 01/31/17 at 16:00; Status DC Sodium Chloride 1,000 ml @ 400 mls/hr Q2H30M PRN IV PATENCY; Start 01/31/17 at 09:00; Stop 01/31/17 at 16:00; Status DC Info (PHARMACY MONITORING -- do not chart) 1 each PRN DAILY PRN MC SEE COMMENTS ; Start 01/31/17 at 09:00 Lidocaine HCl (Xylocaine-Mpf 1% Vial) 0.5 ml 1X STAT ID Last administered on 09:40; Start 01/31/17 at 08:51; Stop 01/31/17 at 08:56; Status DC Lidocaine HCl (Xylocaine-Mpf 1% Vial) 2 ml 1X ONCE INJ ; Start 02/01/17 at 09:45 ; Stop 02/01/17 at 09:46; Status DC Active Scripts Active Renagel (Sevelamer Hcl) 400 Mg Tablet 400 Mg PO BID Aspirin Ec (Aspirin) 81 Mg Tablet.dr 81 Mg PO DAILYWBKFT Reported Xanax (Alprazolam) 0.5 Mg Tablet 1 Tab PO BID Percocet 10-325 Mg Tablet (Oxycodone/Acetaminophen) 1 Each Tablet 1 Tab PO PRN Q6HRS PRN Mupirocin Ointment (Mupirocin) 22 Gm Oint...g. 1 Bradly TP BID PRN Nitrostat (Nitroglycerin) 0.4 Mg Tab.subl 0.4 Mg SL PRN Q5MIN PRN Actos (Pioglitazone Hcl) 30 Mg Tablet 1 Tab PO DAILY Zoloft (Sertraline Hcl) 50 Mg Tablet 1 Tab PO DAILY Carvedilol 6.25 Mg Tablet 1 Tab PO BID Lisinopril 40 Mg Tablet 0.5 Tab PO DAILY Metformin Hcl 500 Mg Tablet 1 Tab PO BID Vitals/I & O Vital Sign - Last 24 Hours 01/31/17 01/31/17 01/31/17 01/31/17 13:40 14:32 14:33 15:00 Temp 97.9 97.4 97.9 97.4 Pulse 79 77 83 Resp 20 18 20 B/P (MAP) 150/88 (108) 150/88 152/92 (112) Pulse Ox 97 96 O2 Delivery Nasal Cannula Nasal Cannula Nasal Cannula O2 Flow Rate 3.0 2.0 3.0 01/31/17 01/31/17 01/31/17 01/31/17 15:02 17:25 19:00 22:15 Temp 98.3 98.3 Pulse 83 80 Resp 17 B/P (MAP) 152/92 122/73 (89) Pulse Ox 90 O2 Delivery Nasal Cannula Nasal Cannula O2 Flow Rate 2.0 3.0 3.0 01/31/17 01/31/17 01/31/17 02/01/17 22:16 22:45 23:15 03:00 Temp 98.1 97.6 98.1 97.6 Pulse 73 71 Resp 20 20 18 18 B/P (MAP) 131/71 (91) 132/87 (102) Pulse Ox 100 100 O2 Delivery Nasal Cannula Nasal Cannula Nasal Cannula Nasal Cannula O2 Flow Rate 3.0 3.0 3.0 02/01/17 02/01/17 02/01/17 07:15 08:00 09:06 Temp 96.3 96.3 Pulse 77 Resp 18 B/P (MAP) 136/73 (94) Pulse Ox 93 100 O2 Delivery Nasal Cannula Nasal Cannula Nasal Cannula O2 Flow Rate 3.0 3.0 3.0 Intake and Output 01/31/17 01/31/17 02/01/17 15:00 23:00 07:00 Intake Total 240 ml 50 ml Output Total 200 ml Balance 240 ml -150 ml TRISTON CONTRERAS III DO Feb 01, 2017 11:57
[2017-02-01] MEDS: PIOGLITAZONE 15 MG TABLET. PO SCH (12:52)
[2017-02-01] MEDS: SERTRALINE 50 MG TABLET. PO SCH (12:52)
[2017-02-01] MEDS: SEVELAMER CARBONATE 800 MG TABLET. PO SCH ×2 (12:52→17:05)
[2017-02-01] MEDS: ASPIRIN ENTERIC COATED 81 MG TABLET.DR. PO SCH (12:52)
[2017-02-01] MEDS: LISINOPRIL 20 MG TABLET PO SCH (13:01)
[2017-02-01] MEDS: CARVEDILOL 6.25 MG TABLET. PO SCH ×2 (13:01→16:55)
[2017-02-01 14:30] VITALS: BP 133/66
[2017-02-01 19:00] VITALS: BP 117/63
[2017-02-01 23:31] VITALS: BP 104/59
[2017-02-02] MEDS: MORPHINE SULFATE 2 MG/ML DISP.SYRIN. IV PRN ×8 (00:39→22:31)
[2017-02-02 03:36] VITALS: BP 123/73
[2017-02-02] MEDS: HEPARIN PF for SUB-Q USE 5,000 UNIT/0.5 ML VIAL. SQ SCH ×3 (05:51→20:09)
[2017-02-02 07:00] VITALS: BP 117/65
[2017-02-02] MEDS: INSULIN ASPART 300 UNITS/3 ML INSULN.PEN SQ SCH ×3 (08:00→17:00)
[2017-02-02] MEDS: CARVEDILOL 6.25 MG TABLET. PO SCH ×2 (08:46→17:00)
[2017-02-02] MEDS: ASPIRIN ENTERIC COATED 81 MG TABLET.DR. PO SCH (08:47)
[2017-02-02] MEDS: LISINOPRIL 20 MG TABLET PO SCH (08:47)
[2017-02-02] MEDS: SERTRALINE 50 MG TABLET. PO SCH (08:47)
[2017-02-02] MEDS: SEVELAMER CARBONATE 800 MG TABLET. PO SCH ×2 (08:47→17:41)
[2017-02-02] MEDS: ALPRAZolam 0.5 MG TABLET PO SCH ×2 (08:47→20:02)
[2017-02-02] MEDS: PIOGLITAZONE 15 MG TABLET. PO SCH (08:47)
[2017-02-02 11:00] VITALS: BP 116/57
[2017-02-02 15:00] VITALS: BP 127/62
--- NOTE | 2017-02-02 15:03 | PDOC4 ---
PROCEDURE Procedure RENAL DIALYSIS / ALBINO BOLDEN done. F 180/ HCO3 / 3K Qb 450 Qd 600 UF to dry wt No complications. Well tolerated. SHASHI POSADA MD Feb 02, 2017 15:03
--- NOTE | 2017-02-02 15:20 | PDOC ---
PROGRESS NOTES Chief Complaint Chief Complaint 0. Severe noncompliance with HD , missed for 2 weeks 1. sob, pulmonary edema with CHF exacerbation, systolic with EF 30% 2012 , MISSing HD 1 week 2. SYSTolic CHF with PPM/ICD 3. ESRD on HD MWF 4. Afib, s/p ablation and pacer placement 5. DM2, not on insulin 6. HTN 7. COPD , tobaccoism 8. anemia: 2/2 ESRD 9. chronic body pain 10. umbilical hernia: easily reducible. 11. Leg pain, peripharal neuropathy 12. protein malnutrition 13. UNCOMPLiance of medical care 14. bl blind 15. chronic constipation on opiods History of Present Illness History of Present Illness Pt seen and examined ([facility] [place] 2 weeks) CARIE RN Co weakness Vitals Vitals Vital Signs Date Time Temp Pulse Resp B/P (MAP) Pulse Ox O2 Delivery O2 Flow Rate FiO2 02/02/17 12:50 99 Nasal Cannula 3.0 02/02/17 11:00 97.5 69 16 116/57 (76) 97.5 Physical Exam General: Alert, Oriented X3 Heart: Regular rate, Normal S1, Normal S2 Lungs: Clear Abdomen: Other (nauseated, decreased bowel sounds) Extremities: No clubbing, No cyanosis Skin: No rashes, No breakdown Labs LABS Laboratory Tests Test 02/01/17 16:38 02/01/17 21:05 02/02/17 08:13 02/02/17 11:54 Glucose (Fingerstick) 153 mg/dL (70-99) 127 mg/dL (70-99) 102 mg/dL (70-99) 161 mg/dL (70-99) Review of Systems Review of Systems co weakness co depression Assessment and Plan Assessmemt and Plan Problems Medical Problems: (1) End stage renal disease Status: Acute (2) Fluid overload Status: Acute (3) Respiratory distress Status: Acute 0. Severe noncompliance with HD , missed for 2 weeks 1. sob, pulmonary edema with CHF exacerbation, systolic with EF 30% 2012 , MISSing HD 1 week 2. SYSTolic CHF with PPM/ICD 3. ESRD on HD MWF 4. Afib, s/p ablation and pacer placement 5. DM2, not on insulin 6. HTN 7. COPD , tobaccoism 8. anemia: 2/2 ESRD 9. chronic body pain 10. umbilical hernia: easily reducible. 11. Leg pain, peripharal neuropathy 12. protein malnutrition 13. UNCOMPLiance of medical care 14. bl blind 15. chronic constipation on opiods Plan HD daily Frequent labs Home meds PTOT Problems: Comment Review of Relevant I have reviewed the following items serg (where applicable) has been applied. Labs Laboratory Tests Test 01/31/17 16:54 01/31/17 20:40 02/01/17 07:27 02/01/17 12:50 Glucose (Fingerstick) 95 mg/dL (70-99) 103 mg/dL (70-99) 74 mg/dL (70-99) 95 mg/dL (70-99) Test 02/01/17 16:38 02/01/17 21:05 02/02/17 08:13 02/02/17 11:54 Glucose (Fingerstick) 153 mg/dL (70-99) 127 mg/dL (70-99) 102 mg/dL (70-99) 161 mg/dL (70-99) Laboratory Tests Test 02/01/17 16:38 02/01/17 21:05 02/02/17 08:13 02/02/17 11:54 Glucose (Fingerstick) 153 mg/dL (70-99) 127 mg/dL (70-99) 102 mg/dL (70-99) 161 mg/dL (70-99) Medications Current Medications Acetaminophen (Tylenol) 650 mg PRN Q6HRS PRN PO FEVER; Start 01/30/17 at 17:45 Ondansetron HCl (Zofran) 4 mg PRN Q6HRS PRN IV NAUSEA/VOMITING Last administered on 01/31/17 10:56; Start 01/30/17 at 17:45 Morphine Sulfate 2 mg PRN Q2HR PRN IV PAIN Last administered on 02/02/17 12:20 ; Start 01/30/17 at 17:45 Tramadol HCl (Ultram) 50 mg PRN Q6HRS PRN PO PAIN; Start 01/30/17 at 17:45 Hydralazine HCl (Apresoline) 10 mg PRN Q4HRS PRN IVP ELEVATED BP, SEE COMMENTS ; Start 01/30/17 at 17:45 Docusate Sodium (Colace) 100 mg PRN DAILY PRN PO CONSTIPATION; Start 01/30/17 at 17:45 Heparin Sodium (Porcine) (Heparin Sq) 5,000 unit Q8HRS SQ Last administered on 02/02/17 05:51; Start 01/30/17 at 22:00 Alprazolam (Xanax) 0.5 mg BID PO Last administered on 02/02/17 08:47; Start 01/30/17 at 21:00 Aspirin (Ecotrin) 81 mg DAILYWBKFT PO Last administered on 02/02/17 08:47; Start 01/31/17 at 08:00 Carvedilol (Coreg) 6.25 mg BIDWMEALS PO Last administered on 02/02/17 08:46; Start 01/30/17 at 18:00 Lisinopril (Prinivil) 20 mg DAILY PO Last administered on 02/02/17 08:47; Start 01/31/17 at 09:00 Metformin HCl (Glucophage) 500 mg BIDWMEALS PO ; Start 01/30/17 at 18:00; Stop at 18:00; Status DC Nitroglycerin (Nitrostat) 0.4 mg PRN Q5MIN PRN SL CHEST PAIN; Start 01/30/17 at 17:45 Oxycodone/ Acetaminophen (Percocet 10/325) 1 tab PRN Q6HRS PRN PO PAIN Last administered on 01/31/17 05:57; Start 01/30/17 at 17:45 Sertraline HCl (Zoloft) 50 mg DAILY PO Last administered on 02/02/17 08:47; Start 01/31/17 at 09:00 Pioglitazone HCl (Actos) 30 mg DAILY PO Last administered on 02/02/17 08:47; Start 01/31/17 at 09:00 Sevelamer Carbonate (Renvela) 400 mg BIDWMEALS PO Last administered on 08:47; Start 01/30/17 at 18:00 Insulin Aspart (NovoLOG) 0-9 UNITS TIDWMEALS SQ Last administered on 02/02/17 12:25; Start 01/31/17 at 08:00 Dextrose (Dextrose 50%-Water Syringe) 12.5 gm PRN Q15MIN PRN IV SEE COMMENTS; Start 01/30/17 at 17:45 Albuterol Sulfate (Ventolin Neb Soln) 2.5 mg PRN Q4HRS PRN NEB COUGH Last administered on 01/31/17 11:53; Start 01/30/17 at 17:45 Sodium Chloride 1,000 ml @ 1,000 mls/hr Q1H PRN IV hypotension; Start 01/31/17 at 09:00; Stop 01/31/17 at 16:00; Status DC Diphenhydramine HCl (Benadryl) 25 mg 1X PRN PRN IV ITCHING; Start 01/31/17 at 09 :00; Stop 01/31/17 at 16:00; Status DC Diphenhydramine HCl (Benadryl) 25 mg 1X PRN PRN IV ITCHING; Start 01/31/17 at 09 :00; Stop 01/31/17 at 16:00; Status DC Sodium Chloride 1,000 ml @ 400 mls/hr Q2H30M PRN IV PATENCY; Start 01/31/17 at 09:00; Stop 01/31/17 at 16:00; Status DC Info (PHARMACY MONITORING -- do not chart) 1 each PRN DAILY PRN MC SEE COMMENTS ; Start 01/31/17 at 09:00 Lidocaine HCl (Xylocaine-Mpf 1% Vial) 0.5 ml 1X STAT ID Last administered on 09:40; Start 01/31/17 at 08:51; Stop 01/31/17 at 08:56; Status DC Lidocaine HCl (Xylocaine-Mpf 1% Vial) 2 ml 1X ONCE INJ ; Start 02/01/17 at 09:45 ; Stop 02/01/17 at 09:46; Status DC Active Scripts Active Renagel (Sevelamer Hcl) 400 Mg Tablet 400 Mg PO BID Aspirin Ec (Aspirin) 81 Mg Tablet. 81 Mg PO DAILYWBKFT Reported Xanax (Alprazolam) 0.5 Mg Tablet 1 Tab PO BID Percocet 10-325 Mg Tablet (Oxycodone/Acetaminophen) 1 Each Tablet 1 Tab PO PRN Q6HRS PRN Mupirocin Ointment (Mupirocin) 22 Gm Oint...g. 1 Bradly TP BID PRN Nitrostat (Nitroglycerin) 0.4 Mg Tab.subl 0.4 Mg SL PRN Q5MIN PRN Actos (Pioglitazone Hcl) 30 Mg Tablet 1 Tab PO DAILY Zoloft (Sertraline Hcl) 50 Mg Tablet 1 Tab PO DAILY Carvedilol 6.25 Mg Tablet 1 Tab PO BID Lisinopril 40 Mg Tablet 0.5 Tab PO DAILY Metformin Hcl 500 Mg Tablet 1 Tab PO BID Vitals/I & O Vital Sign - Last 24 Hours 02/01/17 02/01/17 02/01/17 02/01/17 16:55 16:56 19:00 19:10 Temp 95.2 95.2 Pulse 77 82 Resp 17 B/P (MAP) 133/66 117/63 (81) Pulse Ox 99 98 O2 Delivery Nasal Cannula Nasal Cannula Nasal Cannula O2 Flow Rate 3.0 3.0 3.0 02/01/17 02/01/17 02/01/17 02/02/17 20:26 22:39 23:31 00:39 Temp 97.8 97.8 Pulse 72 Resp 16 18 18 B/P (MAP) 104/59 (74) Pulse Ox 98 98 96 96 O2 Delivery Nasal Cannula Nasal Cannula Nasal Cannula Nasal Cannula O2 Flow Rate 3.0 3.0 3.0 3.0 02/02/17 02/02/17 02/02/17 02/02/17 03:02 03:36 05:48 06:17 Temp 97.6 97.6 Pulse 70 Resp 19 B/P (MAP) 123/73 (90) Pulse Ox 96 99 99 O2 Delivery Nasal Cannula Nasal Cannula Nasal Cannula O2 Flow Rate 3.0 3.0 3.0 02/02/17 02/02/17 02/02/17 02/02/17 07:00 08:00 08:23 08:46 Temp 97.5 97.5 Pulse 72 70 Resp 16 B/P (MAP) 117/65 (82) 117/65 Pulse Ox 100 99 O2 Delivery Nasal Cannula Nasal Cannula Nasal Cannula O2 Flow Rate 3.0 3.0 3.0 02/02/17 02/02/17 02/02/17 02/02/17 08:47 10:20 11:00 12:20 Temp 97.5 97.5 Pulse 70 69 Resp 16 B/P (MAP) 117/65 116/57 (76) Pulse Ox 99 99 99 O2 Delivery Nasal Cannula Nasal Cannula Nasal Cannula O2 Flow Rate 3.0 3.0 3.0 02/02/17 12:50 Pulse Ox 99 O2 Delivery Nasal Cannula O2 Flow Rate 3.0 Intake and Output 02/01/17 02/01/17 02/02/17 15:00 23:00 07:00 Intake Total 480 ml 240 ml 300 ml Output Total 150 ml 500 ml Balance 480 ml 90 ml -200 ml TRISTON CONTRERAS III DO Feb 02, 2017 15:20
[2017-02-02 19:42] VITALS: BP 136/84
[2017-02-02 22:49] VITALS: BP 133/81
[2017-02-03] MEDS: MORPHINE SULFATE 2 MG/ML DISP.SYRIN. IV PRN ×3 (05:14→13:16)
[2017-02-03] MEDS: HEPARIN PF for SUB-Q USE 5,000 UNIT/0.5 ML VIAL. SQ SCH ×3 (05:19→20:17)
[2017-02-03 07:00] VITALS: BP 129/68
[2017-02-03] MEDS ORDERED: IV NORMAL SALINE 1000ML BAG 1,000 ML IV PRN ×2 (07:22)
[2017-02-03] MEDS ORDERED: DIALYSIS PATIENT. MC PRN (07:30)
[2017-02-03] MEDS ORDERED: diphenhydrAMINE 50 MG/ML VIAL IV PRN ×2 (07:30)
[2017-02-03] MEDS: LISINOPRIL 20 MG TABLET PO SCH (07:35)
[2017-02-03] MEDS: INSULIN ASPART 300 UNITS/3 ML INSULN.PEN SQ SCH ×3 (07:35→16:42)
[2017-02-03] MEDS: CARVEDILOL 6.25 MG TABLET. PO SCH ×2 (07:36→17:24)
[2017-02-03] MEDS: SEVELAMER CARBONATE 800 MG TABLET. PO SCH ×2 (07:38→17:23)
[2017-02-03] MEDS: PIOGLITAZONE 15 MG TABLET. PO SCH (07:38)
[2017-02-03] MEDS: ASPIRIN ENTERIC COATED 81 MG TABLET.DR. PO SCH (07:38)
[2017-02-03] MEDS: SERTRALINE 50 MG TABLET. PO SCH (07:38)
[2017-02-03] MEDS: ALPRAZolam 0.5 MG TABLET PO SCH ×2 (07:38→20:13)
--- NOTE | 2017-02-03 12:42 | PDOC ---
PROGRESS NOTES Chief Complaint Chief Complaint Fluid O/L ASSESSMENT AND PLAN: 1. Fluid overload: 2/2 CHF and ESRD, exacerbated by med noncompliance, incl HD. now resolved. frequent cause for admissions 2. CHF exacerbation: systolic (EF 30%). AICD in place. resolved 3. ESRD: missed HD x2 weeks 4. Afib: s/p ablation and pacer placement. no acute issues 5. DM2, not on insulin 6. HTN 7. COPD , tobaccoism 8. anemia: 2/2 ESRD 9. chronic body pain 10. umbilical hernia: easily reducible. 11. Leg pain, peripheral neuropathy 12. protein malnutrition 13. chronic constipation 2/2 opioids 14. bl blind 15. Dispo: home situation not ideal (lives w/ son, sister recently ), but declines NH placement History of Present Illness History of Present Illness at HD. hungry. no pain currently, but is a bit lethargic Vitals Vitals Vital Signs Date Time Temp Pulse Resp B/P (MAP) Pulse Ox O2 Delivery O2 Flow Rate FiO2 02/03/17 08:07 18 99 Nasal Cannula 3.0 02/03/17 07:36 77 133/81 02/03/17 07:00 97.9 97.9 Physical Exam General: Cooperative, Other (lethargic, answering appropriately) Heart: Regular rate Lungs: Clear Abdomen: Normal bowel sounds, No tenderness, Other Extremities: No clubbing, No edema Skin: No rashes Labs LABS Laboratory Tests Test 02/02/17 16:23 02/02/17 20:55 02/03/17 07:27 Glucose (Fingerstick) 148 mg/dL (70-99) 136 mg/dL (70-99) 107 mg/dL (70-99) JOY MONAE MD Feb 03, 2017 12:42
[2017-02-03] MEDS ORDERED: ALPR0.25 PO (12:46)
[2017-02-03] MEDS ORDERED: OXYC-323 PO (12:46)
[2017-02-03 15:00] VITALS: BP 126/61
[2017-02-03] MEDS: oxyCODONE/APAP 10/325 1 TAB TABLET PO PRN ×2 (15:35→22:29)
[2017-02-03 15:53] VITALS: BP 126/61
[2017-02-03 19:00] VITALS: BP 104/62
[2017-02-03] MEDS: traMADol 50 MG TABLET PO PRN (20:12)
[2017-02-03 23:00] VITALS: BP 121/70
--- NOTE | 2017-02-03 23:24 | PDOC ---
Provider Note Provider Note RENAL F/U : ALBINO DOS : 02/02/17. S : No new issues. O : VSS Afebrile. Neck : Supple Lungs : Non labored. CVS : RRR Abd : Benign in appearance, without distention. Ext : 1+ edema Neuro : Awake. Labs reviewed. A/P : ESRD HTN w CKD ANEMIA Doing Ok HD in am. CPM. SHASHI POSADA MD Feb 03, 2017 23:24
--- NOTE | 2017-02-03 23:25 | PDOC ---
Provider Note Provider Note RENAL DIALYSIS / ALBINO HD done. F 180/ HCO3 / 3K Qb 450 Qd 600 UF to dry wt No complications. Well tolerated. SHASHI POSADA MD Feb 03, 2017 23:25
[2017-02-04] MEDS: traMADol 50 MG TABLET PO PRN (02:24)
[2017-02-04 03:00] VITALS: BP 121/61
[2017-02-04] MEDS: oxyCODONE/APAP 10/325 1 TAB TABLET PO PRN ×2 (04:44→20:26)
[2017-02-04] MEDS: HEPARIN PF for SUB-Q USE 5,000 UNIT/0.5 ML VIAL. SQ SCH ×3 (04:57→20:29)
[2017-02-04 07:00] VITALS: BP 121/60
[2017-02-04] MEDS: INSULIN ASPART 300 UNITS/3 ML INSULN.PEN SQ SCH ×3 (08:00→17:00)
[2017-02-04] MEDS: ASPIRIN ENTERIC COATED 81 MG TABLET.DR. PO SCH (09:33)
[2017-02-04] MEDS: CARVEDILOL 6.25 MG TABLET. PO SCH ×2 (09:33→17:15)
[2017-02-04] MEDS: SEVELAMER CARBONATE 800 MG TABLET. PO SCH ×2 (09:34→17:15)
[2017-02-04] MEDS: LISINOPRIL 20 MG TABLET PO SCH (09:35)
[2017-02-04] MEDS: ALPRAZolam 0.5 MG TABLET PO SCH ×2 (09:35→20:25)
[2017-02-04] MEDS: SERTRALINE 50 MG TABLET. PO SCH ×2 (09:36→20:25)
[2017-02-04] MEDS: PIOGLITAZONE 15 MG TABLET. PO SCH (09:36)
[2017-02-04 11:00] VITALS: BP 104/55
[2017-02-04] MEDS: MORPHINE SULFATE 2 MG/ML DISP.SYRIN. IV PRN ×3 (12:03→23:00)
[2017-02-04 14:29] LABS: HEP B SURFACE ABDY Non Reactive (.)
[2017-02-04 15:00] VITALS: BP 109/59
--- NOTE | 2017-02-04 16:20 | PDOC ---
PROGRESS NOTES Chief Complaint Chief Complaint Fluid O/L ASSESSMENT AND PLAN: 1. Fluid overload: 2/2 CHF and ESRD, exacerbated by med noncompliance, incl HD. now resolved. frequent cause for admissions 2. CHF exacerbation: systolic (EF 30%). AICD in place. resolved 3. ESRD: missed HD x2 weeks 4. Afib: s/p ablation and pacer placement. no acute issues 5. DM2, not on insulin 6. HTN 7. COPD: no acute issues. 8. Anemia: 2/2 ESRD. on EPO 9. umbilical hernia: easily reducible. 10. Chronic body pain: cont home regimen 11. Peripheral neuropathy 12. Chronic constipation 2/2 opioids 13. Depression: d/w pt today: she feels depressed, has no energy to do anything at home . agreeable to trial of zoloft. 14. Protein malnutrition: ESRD and chronic inflamation affecting albumin levels. supplements 15. Dispo: home situation not ideal (lives w/ son, sister recently ), but declines NH placement again in discussion today. awaiting arrangement of O/P HD History of Present Illness History of Present Illness sleeping, as usual, but waking easily to verbal input. no new issues Vitals Vitals Vital Signs Date Time Temp Pulse Resp B/P (MAP) Pulse Ox O2 Delivery O2 Flow Rate FiO2 02/04/17 12:03 20 98 Nasal Cannula 02/04/17 11:00 98.0 74 104/55 (71) 98.0 02/04/17 04:44 3.0 Physical Exam General: Alert, Oriented X3, Cooperative, No acute distress Heart: Regular rate Lungs: Clear Abdomen: Normal bowel sounds, Soft, No tenderness Extremities: No clubbing, No edema Skin: No rashes Labs LABS Laboratory Tests Test 02/03/17 16:28 02/03/17 20:55 02/04/17 07:55 02/04/17 11:28 Glucose (Fingerstick) 114 mg/dL (70-99) 158 mg/dL (70-99) 86 mg/dL (70-99) 101 mg/dL (70-99) JOY MONAE MD Feb 04, 2017 16:20
[2017-02-04 19:00] VITALS: BP 128/62
[2017-02-04 23:00] VITALS: BP 119/68
--- NOTE | 2017-02-04 23:54 | PDOC4 ---
PROCEDURE Procedure Procedure RENAL DIALYSIS / ALBINO BOLDEN done. F 180/ HCO3 / 3K Qb 450 Qd 600 UF to dry wt No complications. Well tolerated. SHASHI POSADA MD Feb 04, 2017 23:54
[2017-02-05] MEDS: MORPHINE SULFATE 2 MG/ML DISP.SYRIN. IV PRN ×5 (01:52→20:49)
[2017-02-05 03:00] VITALS: BP 118/65
[2017-02-05] MEDS: oxyCODONE/APAP 10/325 1 TAB TABLET PO PRN ×2 (03:24→20:14)
[2017-02-05] MEDS: HEPARIN PF for SUB-Q USE 5,000 UNIT/0.5 ML VIAL. SQ SCH ×3 (05:08→20:50)
[2017-02-05 07:00] VITALS: BP 137/76
[2017-02-05] MEDS: INSULIN ASPART 300 UNITS/3 ML INSULN.PEN SQ SCH ×3 (08:00→17:00)
[2017-02-05] MEDS: PIOGLITAZONE 15 MG TABLET. PO SCH (09:00)
[2017-02-05] MEDS: ASPIRIN ENTERIC COATED 81 MG TABLET.DR. PO SCH (10:01)
[2017-02-05] MEDS: CARVEDILOL 6.25 MG TABLET. PO SCH ×2 (10:01→17:16)
[2017-02-05] MEDS: SEVELAMER CARBONATE 800 MG TABLET. PO SCH ×2 (10:02→17:17)
[2017-02-05] MEDS: ALPRAZolam 0.5 MG TABLET PO SCH ×2 (10:03→20:49)
[2017-02-05] MEDS: LISINOPRIL 20 MG TABLET PO SCH (10:03)
[2017-02-05] MEDS: SERTRALINE 50 MG TABLET. PO SCH ×2 (10:04→20:49)
[2017-02-05 11:00] VITALS: BP 140/63
[2017-02-05 15:00] VITALS: BP 129/53
--- NOTE | 2017-02-05 18:20 | PDOC ---
Provider Note Provider Note RENAL F/U : ALBINO S : No new issues. O : VSS Afebrile. Neck : Supple Lungs : Non labored. CVS : RRR Abd : Benign in appearance, without distention. Ext : 1+ edema Labs reviewed. A/P : ESRD HTN w CKD ANEMIA Refused HD today Also refused blood draw. Compliance remains a huge issue with her care. HD in am. CPM. SHASHI POSADA MD Feb 05, 2017 18:20
--- NOTE | 2017-02-05 18:59 | PDOC ---
PROGRESS NOTES Chief Complaint Chief Complaint 1. Fluid overload: 2/2 CHF and ESRD, exacerbated by med noncompliance, incl HD. now resolved. frequent cause for admissions 2. CHF exacerbation: systolic (EF 30%). AICD in place. resolved 3. ESRD: missed HD x2 weeks 4. Afib: s/p ablation and pacer placement. no acute issues 5. DM2, not on insulin 6. HTN 7. COPD: no acute issues. 8. Anemia: 2/2 ESRD. on EPO 9. umbilical hernia: easily reducible. 10. Chronic body pain: cont home regimen 11. Peripheral neuropathy 12. Chronic constipation 2/2 opioids 13. Depression: d/w pt today: she feels depressed, has no energy to do anything at home . agreeable to trial of zoloft. 14. Protein malnutrition: ESRD and chronic inflamation affecting albumin levels. supplements 15. Dispo: home situation not ideal (lives w/ son, sister recently ), but declines NH placement again in discussion today. awaiting arrangement of O/P HD History of Present Illness History of Present Illness sleeping, as usual, but waking easily to verbal input. no new issues Vitals Vitals Vital Signs Date Time Temp Pulse Resp B/P (MAP) Pulse Ox O2 Delivery O2 Flow Rate FiO2 02/05/17 17:49 20 92 Room Air 02/05/17 17:16 67 129/53 02/05/17 15:00 96.6 96.6 02/05/17 11:00 2.0 Physical Exam General: Alert, Oriented X3, Cooperative, No acute distress Heart: Regular rate Lungs: Clear Abdomen: Normal bowel sounds, Soft, No tenderness Extremities: No clubbing, No edema Skin: No rashes Labs LABS Laboratory Tests Test 02/05/17 07:56 02/05/17 10:43 02/05/17 17:02 Glucose (Fingerstick) 86 mg/dL (70-99) 164 mg/dL (70-99) 99 mg/dL (70-99) Review of Systems Review of Systems co weakness co depression Assessment and Plan Assessmemt and Plan Problems Medical Problems: (1) End stage renal disease Status: Acute (2) Fluid overload Status: Acute (3) Respiratory distress Status: Acute 1. Fluid overload: 2/2 CHF and ESRD, exacerbated by med noncompliance, incl HD. now resolved. frequent cause for admissions 2. CHF exacerbation: systolic (EF 30%). AICD in place. resolved 3. ESRD: missed HD x2 weeks 4. Afib: s/p ablation and pacer placement. no acute issues 5. DM2, not on insulin 6. HTN 7. COPD: no acute issues. 8. Anemia: 2/2 ESRD. on EPO 9. umbilical hernia: easily reducible. 10. Chronic body pain: cont home regimen 11. Peripheral neuropathy 12. Chronic constipation 2/2 opioids 13. Depression: d/w pt today: she feels depressed, has no energy to do anything at home . agreeable to trial of zoloft. 14. Protein malnutrition: ESRD and chronic inflamation affecting albumin levels. supplements 15. Dispo: home situation not ideal (lives w/ son, sister recently ), but declines NH placement again in discussion today. awaiting arrangement of O/P HD Plan Daily HD Recheck labs PTOt Home meds Problems: Comment Review of Relevant I have reviewed the following items serg (where applicable) has been applied. Labs Laboratory Tests Test 02/03/17 20:55 02/04/17 07:55 02/04/17 11:28 02/05/17 07:56 Glucose (Fingerstick) 158 mg/dL (70-99) 86 mg/dL (70-99) 101 mg/dL (70-99) 86 mg/dL (70-99) Test 02/05/17 10:43 02/05/17 17:02 Glucose (Fingerstick) 164 mg/dL (70-99) 99 mg/dL (70-99) Laboratory Tests Test 02/05/17 07:56 02/05/17 10:43 02/05/17 17:02 Glucose (Fingerstick) 86 mg/dL (70-99) 164 mg/dL (70-99) 99 mg/dL (70-99) Medications Current Medications Acetaminophen (Tylenol) 650 mg PRN Q6HRS PRN PO FEVER; Start 01/30/17 at 17:45 Ondansetron HCl (Zofran) 4 mg PRN Q6HRS PRN IV NAUSEA/VOMITING Last administered on 01/31/17 10:56; Start 01/30/17 at 17:45 Morphine Sulfate 2 mg PRN Q2HR PRN IV PAIN Last administered on 02/05/17 17:19 ; Start 01/30/17 at 17:45 Tramadol HCl (Ultram) 50 mg PRN Q6HRS PRN PO PAIN Last administered on 02:24; Start 01/30/17 at 17:45 Hydralazine HCl (Apresoline) 10 mg PRN Q4HRS PRN IVP ELEVATED BP, SEE COMMENTS ; Start 01/30/17 at 17:45 Docusate Sodium (Colace) 100 mg PRN DAILY PRN PO CONSTIPATION; Start 01/30/17 at 17:45 Heparin Sodium (Porcine) (Heparin Sq) 5,000 unit Q8HRS SQ Last administered on 02/05/17 15:27; Start 01/30/17 at 22:00 Alprazolam (Xanax) 0.5 mg BID PO Last administered on 02/05/17 10:03; Start 01/30/17 at 21:00 Aspirin (Ecotrin) 81 mg DAILYWBKFT PO Last administered on 02/05/17 10:01; Start 01/31/17 at 08:00 Carvedilol (Coreg) 6.25 mg BIDWMEALS PO Last administered on 02/05/17 17:16; Start 01/30/17 at 18:00 Lisinopril (Prinivil) 20 mg DAILY PO Last administered on 02/05/17 10:03; Start 01/31/17 at 09:00 Metformin HCl (Glucophage) 500 mg BIDWMEALS PO ; Start 01/30/17 at 18:00; Stop at 18:00; Status DC Nitroglycerin (Nitrostat) 0.4 mg PRN Q5MIN PRN SL CHEST PAIN; Start 01/30/17 at 17:45 Oxycodone/ Acetaminophen (Percocet 10/325) 1 tab PRN Q6HRS PRN PO PAIN Last administered on 02/05/17 03:24; Start 01/30/17 at 17:45 Sertraline HCl (Zoloft) 50 mg DAILY PO Last administered on 02/05/17 10:04; Start 01/31/17 at 09:00 Pioglitazone HCl (Actos) 30 mg DAILY PO Last administered on 02/03/17 07:38; Start 01/31/17 at 09:00 Sevelamer Carbonate (Renvela) 400 mg BIDWMEALS PO Last administered on 17:17; Start 01/30/17 at 18:00 Insulin Aspart (NovoLOG) 0-9 UNITS TIDWMEALS SQ Last administered on 02/05/17 12:19; Start 01/31/17 at 08:00 Dextrose (Dextrose 50%-Water Syringe) 12.5 gm PRN Q15MIN PRN IV SEE COMMENTS; Start 01/30/17 at 17:45 Albuterol Sulfate (Ventolin Neb Soln) 2.5 mg PRN Q4HRS PRN NEB COUGH Last administered on 01/31/17 11:53; Start 01/30/17 at 17:45 Sodium Chloride 1,000 ml @ 1,000 mls/hr Q1H PRN IV hypotension; Start 01/31/17 at 09:00; Stop 01/31/17 at 16:00; Status DC Diphenhydramine HCl (Benadryl) 25 mg 1X PRN PRN IV ITCHING; Start 01/31/17 at 09 :00; Stop 01/31/17 at 16:00; Status DC Diphenhydramine HCl (Benadryl) 25 mg 1X PRN PRN IV ITCHING; Start 01/31/17 at 09 :00; Stop 01/31/17 at 16:00; Status DC Sodium Chloride 1,000 ml @ 400 mls/hr Q2H30M PRN IV PATENCY; Start 01/31/17 at 09:00; Stop 01/31/17 at 16:00; Status DC Info (PHARMACY MONITORING -- do not chart) 1 each PRN DAILY PRN MC SEE COMMENTS ; Start 01/31/17 at 09:00 Lidocaine HCl (Xylocaine-Mpf 1% Vial) 0.5 ml 1X STAT ID Last administered on 09:40; Start 01/31/17 at 08:51; Stop 01/31/17 at 08:56; Status DC Lidocaine HCl (Xylocaine-Mpf 1% Vial) 2 ml 1X ONCE INJ ; Start 02/01/17 at 09:45 ; Stop 02/01/17 at 09:46; Status DC Sodium Chloride 1,000 ml @ 1,000 mls/hr Q1H PRN IV hypotension; Start 02/03/17 at 07:22; Stop 02/03/17 at 13:21; Status DC Diphenhydramine HCl (Benadryl) 25 mg 1X PRN PRN IV ITCHING; Start 02/03/17 at 07 :30; Stop 02/04/17 at 07:29; Status DC Diphenhydramine HCl (Benadryl) 25 mg 1X PRN PRN IV ITCHING; Start 02/03/17 at 07 :30; Stop 02/04/17 at 07:29; Status DC Sodium Chloride 1,000 ml @ 400 mls/hr Q2H30M PRN IV PATENCY; Start 02/03/17 at 07:22; Stop 02/03/17 at 19:21; Status DC Info (PHARMACY MONITORING -- do not chart) 1 each PRN DAILY PRN MC SEE COMMENTS ; Start 02/03/17 at 07:30; Status UNV Sertraline HCl (Zoloft) 50 mg QHS PO Last administered on 02/04/17t 20:25; Start 02/04/17 at 21:00 Active Scripts Active Percocet 5-325 Mg Tablet (Oxycodone/Acetaminophen) 1 Each Tablet 1 Tab PO PRN Q6HRS PRN Xanax (Alprazolam) 0.25 Mg Tablet 1 Tab PO BID Renagel (Sevelamer Hcl) 400 Mg Tablet 400 Mg PO BID Aspirin Ec (Aspirin) 81 Mg Tablet.dr 81 Mg PO DAILYWBKFT Reported Mupirocin Ointment (Mupirocin) 22 Gm Oint...g. 1 Bradly TP BID PRN Nitrostat (Nitroglycerin) 0.4 Mg Tab.subl 0.4 Mg SL PRN Q5MIN PRN Actos (Pioglitazone Hcl) 30 Mg Tablet 1 Tab PO DAILY Zoloft (Sertraline Hcl) 50 Mg Tablet 1 Tab PO DAILY Carvedilol 6.25 Mg Tablet 1 Tab PO BID Lisinopril 40 Mg Tablet 0.5 Tab PO DAILY Metformin Hcl 500 Mg Tablet 1 Tab PO BID Vitals/I & O Vital Sign - Last 24 Hours 02/04/17 02/04/17 02/04/17 02/04/17 19:00 19:29 20:26 21:26 Temp 98.2 98.2 Pulse 71 Resp 18 18 18 B/P (MAP) 128/62 (84) Pulse Ox 93 100 100 O2 Delivery Room Air Nasal Cannula Room Air Room Air O2 Flow Rate 3.0 02/04/17 02/04/17 02/05/17 02/05/17 23:00 23:00 01:52 03:00 Temp 98.6 97.9 98.6 97.9 Pulse 67 72 Resp 18 18 18 18 B/P (MAP) 119/68 (85) 118/65 (82) Pulse Ox 100 95 100 95 O2 Delivery Nasal Cannula Room Air Nasal Cannula Room Air O2 Flow Rate 3.0 3.0 02/05/17 02/05/17 02/05/17 02/05/17 03:24 05:06 07:00 07:58 Temp 96.8 96.8 Pulse 68 Resp 18 18 16 B/P (MAP) 137/76 (96) Pulse Ox 100 100 96 100 O2 Delivery Nasal Cannula Nasal Cannula Room Air Nasal Cannula O2 Flow Rate 3.0 3.0 3.0 02/05/17 02/05/17 02/05/17 02/05/17 08:00 09:25 09:55 10:01 Pulse 68 Resp 20 B/P (MAP) 137/76 Pulse Ox 100 O2 Delivery Nasal Cannula Nasal Cannula O2 Flow Rate 3.0 3.0 3.0 02/05/17 02/05/17 02/05/17 02/05/17 10:03 11:00 15:00 17:16 Temp 96.1 96.6 96.1 96.6 Pulse 68 67 67 67 Resp 16 16 B/P (MAP) 137/76 140/63 (88) 129/53 (78) 129/53 Pulse Ox 100 92 O2 Delivery Nasal Cannula Room Air O2 Flow Rate 2.0 02/05/17 02/05/17 17:19 17:49 Resp 20 20 Pulse Ox 92 92 O2 Delivery Room Air Room Air Intake and Output 02/04/17 02/04/17 02/05/17 15:00 23:00 07:00 Intake Total 200 ml 600 ml 390 ml Output Total 100 ml Balance 200 ml 600 ml 290 ml TRISTON CONTRERAS III DO Feb 05, 2017 18:59
[2017-02-05 19:00] VITALS: BP 145/88
[2017-02-05 23:00] VITALS: BP 128/66
[2017-02-06] MEDS: MORPHINE SULFATE 2 MG/ML DISP.SYRIN. IV PRN ×3 (02:44→08:47)
[2017-02-06 03:00] VITALS: BP 118/61
[2017-02-06] MEDS: oxyCODONE/APAP 10/325 1 TAB TABLET PO PRN ×2 (03:37→18:39)
[2017-02-06 05:05] LABS: HEMATOCRIT 29.3 % (36.0-47.0); HEMOGLOBIN 9.2 g/dL (12.0-15.5); RED BLOOD COUNT 3.29 x10^6/uL (3.50-5.40)
[2017-02-06 05:34] LABS: ALBUMIN 3.4 g/dL (3.4-5.0); ALBUMIN/GLOBULIN RATIO 0.7 (1.0-1.7); CALCIUM 9.4 mg/dL (8.5-10.1); CREATININE 7.2 mg/dL (0.6-1.0); GFR 7.2; POTASSIUM 4.5 mmol/L (3.5-5.1); TOTAL BILIRUBIN 0.5 mg/dL (0.2-1.0); TOTAL PROTEIN 8.3 g/dL (6.4-8.2)
[2017-02-06] MEDS: HEPARIN PF for SUB-Q USE 5,000 UNIT/0.5 ML VIAL. SQ SCH ×3 (06:00→20:59)
[2017-02-06 07:00] VITALS: BP 122/60
[2017-02-06] MEDS: INSULIN ASPART 300 UNITS/3 ML INSULN.PEN SQ SCH ×3 (08:00→17:00)
[2017-02-06] MEDS: LISINOPRIL 20 MG TABLET PO SCH (08:47)
[2017-02-06] MEDS: ASPIRIN ENTERIC COATED 81 MG TABLET.DR. PO SCH (08:48)
[2017-02-06] MEDS: PIOGLITAZONE 15 MG TABLET. PO SCH (08:48)
[2017-02-06] MEDS: ALPRAZolam 0.5 MG TABLET PO SCH ×2 (08:48→20:59)
[2017-02-06] MEDS: SERTRALINE 50 MG TABLET. PO SCH ×2 (08:48→20:59)
[2017-02-06] MEDS: CARVEDILOL 6.25 MG TABLET. PO SCH ×2 (08:48→18:39)
[2017-02-06] MEDS: SEVELAMER CARBONATE 800 MG TABLET. PO SCH ×2 (08:48→18:40)
--- NOTE | 2017-02-06 09:48 | PDOC2 ---
PALLIATIVE CARE Palliative Care Note Palliative Care Consult requested by Dr. Merchant to address plan of care Medical Diagnosis/Chief Complaint 1. Fluid overload: 2/2 CHF and ESRD, exacerbated by med noncompliance, incl HD. now resolved. frequent cause for admissions 2. CHF exacerbation: systolic (EF 30%). AICD in place. resolved 3. ESRD: missed HD x2 weeks 4. Afib: s/p ablation and pacer placement. no acute issues 5. DM2, not on insulin 6. HTN 7. COPD: no acute issues. 8. Anemia: 2/2 ESRD. on EPO 9. umbilical hernia: easily reducible. 10. Chronic body pain: cont home regimen 11. Peripheral neuropathy 12. Chronic constipation 2/2 opioids 13. Depression: d/w pt today: she feels depressed, has no energy to do anything at home . agreeable to trial of zoloft. 14. Protein malnutrition: ESRD and chronic inflamation affecting albumin levels. supplements 15. Dispo: home situation not ideal (lives w/ son, sister recently ), but declines NH placement again in discussion today. awaiting arrangement of O/P HD Patient currently in dialysis. Spoke with Ophelia RN and Freddy RN --dialysis. Dialysis will be completed around 1440. 1850 Spoke with patient. She wants to continue with dialysis on [address]. Has not been going "because I didn't feel good, the needles hurt and my legs hurt" patient verbalized that without dialysis she will . Is not ready for comfort care/Hospice. Acknowledges that [facility] will not continue treatments due to non-compliance. Not sure what she will do. Patient is not interested in family meeting or further conversation about end of life care /goals of care. Mara ALCARAZ is assisting in trying to find other dialysis centers that will accept patient. PC will sign off. SABRA CABRERA Feb 06, 2017 09:48
[2017-02-06] MEDS ORDERED: IV NORMAL SALINE 1000ML BAG 1,000 ML IV PRN ×2 (10:17)
[2017-02-06] MEDS ORDERED: DIALYSIS PATIENT. MC PRN (10:30)
[2017-02-06] MEDS ORDERED: diphenhydrAMINE 50 MG/ML VIAL IV PRN ×2 (10:30)
[2017-02-06 11:00] VITALS: BP 123/60
[2017-02-06] MEDS ORDERED: LIDOCAINE 1% PF 2 ML VIAL. ID STA (11:04)
--- NOTE | 2017-02-06 14:21 | PDOC ---
PROGRESS NOTES Chief Complaint Chief Complaint 1. Fluid overload: 2/2 CHF and ESRD, exacerbated by med noncompliance, incl HD. now resolved. frequent cause for admissions 2. ESRD: missed HD x2 weeks prior to admit; now regular, and lytes well controlled 3. CHF exacerbation: systolic (EF 30%). AICD in place. resolved 4. Afib: s/p ablation and pacer placement. no acute issues 5. DM2: borderline; not on insulin 6. HTN: well controlled on lisinopril 7. COPD: no acute issues. 8. Anemia: 2/2 ESRD. on EPO 9. umbilical hernia: easily reducible. 10. Chronic body pain: cont home regimen 11. Peripheral neuropathy 12. Chronic constipation 2/2 opioids 13. Depression: d/w pt today: she feels depressed, has no energy to do anything at home . agreeable to trial of zoloft. 14. Protein malnutrition: ESRD and chronic inflammation affecting albumin levels. supplements 15. Dispo: home situation not ideal (lives w/ son, sister recently ), but declines NH placement. awaiting arrangement of O/P HD Vitals Vitals Vital Signs Date Time Temp Pulse Resp B/P (MAP) Pulse Ox O2 Delivery O2 Flow Rate FiO2 02/06/17 11:00 97.7 69 18 123/60 (81) 97 Room Air 97.7 02/06/17 07:44 3.0 Physical Exam General: Alert, Oriented X3, Cooperative, No acute distress Heart: Regular rate Lungs: Clear Abdomen: Normal bowel sounds, Soft, No tenderness Extremities: No clubbing, No edema Skin: No rashes Labs LABS Laboratory Tests Test 02/05/17 17:02 02/05/17 20:49 02/06/17 03:35 02/06/17 07:30 Glucose (Fingerstick) 99 mg/dL (70-99) 123 mg/dL (70-99) 94 mg/dL (70-99) White Blood Count 3.0 x10^3/uL (4.0-11.0) Red Blood Count 3.29 x10^6/uL (3.50-5.40) Hemoglobin 9.2 g/dL (12.0-15.5) Hematocrit 29.3 % (36.0-47.0) Mean Corpuscular Volume 89 fL (79-100) Mean Corpuscular Hemoglobin 28 pg (25-35) Mean Corpuscular Hemoglobin Concent 32 g/dL (31-37) Red Cell Distribution Width 18.0 % (11.5-14.5) Platelet Count 127 x10^3/uL (140-400) Sodium Level 142 mmol/L (136-145) Potassium Level 4.5 mmol/L (3.5-5.1) Chloride Level 102 mmol/L (98-107) Carbon Dioxide Level 29 mmol/L (21-32) Anion Gap 11 (6-14) Blood Urea Nitrogen 59 mg/dL (7-20) Creatinine 7.2 mg/dL (0.6-1.0) Estimated GFR (Cockcroft-Gault) 7.2 BUN/Creatinine Ratio 8 (6-20) Glucose Level 99 mg/dL (70-99) Calcium Level 9.4 mg/dL (8.5-10.1) Total Bilirubin 0.5 mg/dL (0.2-1.0) Aspartate Amino Transf (AST/SGOT) 9 U/L (15-37) Alanine Aminotransferase (ALT/SGPT) 10 U/L (14-59) Alkaline Phosphatase 74 U/L (46-116) Total Protein 8.3 g/dL (6.4-8.2) Albumin 3.4 g/dL (3.4-5.0) Albumin/Globulin Ratio 0.7 (1.0-1.7) JOY MONAE MD Feb 06, 2017 14:21
[2017-02-06 15:00] VITALS: BP 126/65
[2017-02-06 19:00] VITALS: BP 136/69
[2017-02-06 22:49] VITALS: BP 144/73
--- NOTE | 2017-02-06 23:45 | PDOC4 ---
PROCEDURE Procedure Procedure RENAL DIALYSIS / ALBINO BOLDEN done. Seen on RX. F 180/ HCO3 / 3K Qb 450 Qd 600 UF to dry wt No complications. Well tolerated. SHASHI POSADA MD Feb 06, 2017 23:45
[2017-02-07 03:00] VITALS: BP 137/71
[2017-02-07] MEDS: HEPARIN PF for SUB-Q USE 5,000 UNIT/0.5 ML VIAL. SQ SCH ×3 (05:48→20:46)
[2017-02-07 07:00] VITALS: BP 134/78
[2017-02-07] MEDS: INSULIN ASPART 300 UNITS/3 ML INSULN.PEN SQ SCH ×3 (08:00→17:00)
[2017-02-07 10:51] VITALS: BP 120/69
[2017-02-07] MEDS: CARVEDILOL 6.25 MG TABLET. PO SCH ×2 (12:23→17:27)
[2017-02-07] MEDS: ASPIRIN ENTERIC COATED 81 MG TABLET.DR. PO SCH (12:23)
[2017-02-07] MEDS: PIOGLITAZONE 15 MG TABLET. PO SCH (12:24)
[2017-02-07] MEDS: SEVELAMER CARBONATE 800 MG TABLET. PO SCH ×2 (12:24→17:27)
[2017-02-07] MEDS: ALPRAZolam 0.5 MG TABLET PO SCH ×2 (12:25→20:46)
[2017-02-07] MEDS: LISINOPRIL 20 MG TABLET PO SCH (12:25)
[2017-02-07] MEDS: SERTRALINE 50 MG TABLET. PO SCH ×2 (12:26→20:46)
[2017-02-07 15:00] VITALS: BP 135/65
--- NOTE | 2017-02-07 18:17 | PDOC ---
PROGRESS NOTES Chief Complaint Chief Complaint 1. Fluid overload: 2/2 CHF and ESRD, exacerbated by med noncompliance, incl HD. now resolved. frequent cause for admissions 2. ESRD: missed HD x2 weeks prior to admit; now regular, and lytes well controlled 3. CHF exacerbation: systolic (EF 30%). AICD in place. resolved 4. Afib: s/p ablation and pacer placement. no acute issues 5. DM2: borderline; not on insulin 6. HTN: well controlled on lisinopril 7. COPD: no acute issues. 8. Anemia: 2/2 ESRD. on EPO 9. umbilical hernia: easily reducible. 10. Chronic body pain: cont home regimen 11. Peripheral neuropathy 12. Chronic constipation 2/2 opioids 13. Depression: d/w pt today: she feels depressed, has no energy to do anything at home . agreeable to trial of zoloft. 14. Protein malnutrition: ESRD and chronic inflammation affecting albumin levels. supplements 15. Dispo: home situation not ideal (lives w/ son, sister recently ), but declines NH placement. awaiting arrangement of O/P HD - d/w SW: difficulties placing due to prior non-compliance. awaiting [id number] approval History of Present Illness History of Present Illness slumpd over in chair, sleeping, as usual. wakes easily. voices no c/o Vitals Vitals Vital Signs Date Time Temp Pulse Resp B/P (MAP) Pulse Ox O2 Delivery O2 Flow Rate FiO2 02/07/17 17:27 70 135/65 02/07/17 15:00 98.1 17 97 Nasal Cannula 2.0 98.1 Physical Exam General: Alert, Oriented X3, Cooperative, No acute distress Heart: Regular rate Lungs: Clear Abdomen: Normal bowel sounds, Soft, No tenderness Extremities: No clubbing, No edema Skin: No rashes Labs LABS Laboratory Tests Test 02/06/17 21:04 02/07/17 07:38 02/07/17 11:34 02/07/17 16:37 Glucose (Fingerstick) 163 mg/dL (70-99) 97 mg/dL (70-99) 117 mg/dL (70-99) 150 mg/dL (70-99) JOY MONAE MD Feb 07, 2017 18:17
[2017-02-07 19:00] VITALS: BP 117/57
[2017-02-07 23:00] VITALS: BP 124/65
--- NOTE | 2017-02-07 23:49 | PDOC ---
Provider Note Provider Note RENAL F?U : ALBINO Doing OK VSS Afebrile No new issues Exam stable CPM HD in am. SHASHI POSADA MD Feb 07, 2017 23:48
[2017-02-08] VITALS (8 sets, daily range): BP systolic 67–147; BP diastolic 35–68
[2017-02-08] MEDS: HEPARIN PF for SUB-Q USE 5,000 UNIT/0.5 ML VIAL. SQ SCH ×3 (05:48→20:49)
[2017-02-08] MEDS: INSULIN ASPART 300 UNITS/3 ML INSULN.PEN SQ SCH ×3 (07:53→17:30)
[2017-02-08] MEDS: ASPIRIN ENTERIC COATED 81 MG TABLET.DR. PO SCH (09:13)
[2017-02-08] MEDS: CARVEDILOL 6.25 MG TABLET. PO SCH ×2 (09:13→17:24)
[2017-02-08] MEDS: ALPRAZolam 0.5 MG TABLET PO SCH ×2 (09:14→20:46)
[2017-02-08] MEDS: SERTRALINE 50 MG TABLET. PO SCH ×2 (09:14→20:46)
[2017-02-08] MEDS: PIOGLITAZONE 15 MG TABLET. PO SCH (09:14)
[2017-02-08] MEDS: SEVELAMER CARBONATE 800 MG TABLET. PO SCH ×2 (09:14→17:24)
[2017-02-08] MEDS: LISINOPRIL 20 MG TABLET PO SCH (09:14)
[2017-02-08] MEDS ORDERED: LIDOCAINE 1% PF 2 ML VIAL. ONE ×2 (11:00→11:07)
--- NOTE | 2017-02-08 14:00 | PDOC ---
PROGRESS NOTES Subjective Subjective SEEN IN FOLLOW UP OF ESRD Objective Objective Vital Signs Date Time Temp Pulse Resp B/P (MAP) Pulse Ox O2 Delivery O2 Flow Rate FiO2 02/08/17 10:56 101/46 (64) 02/08/17 10:56 97.7 65 16 100 Nasal Cannula 2.0 97.7 Intake and Output 02/08/17 07:00 Intake Total 340 ml Output Total 1 ml Balance 339 ml Intake Oral 340 ml Output Urine Total 1 ml Physical Exam Abdomen: Normal bowel sounds, Soft, No tenderness, No hepatosplenomegaly, No masses Heart: Regular rate, Normal S1, Normal S2, No murmurs, Gallops Extremities: No clubbing, No cyanosis, No edema, Normal pulses, No tenderness/ swelling General: Alert, Oriented X3, Cooperative, No acute distress Lungs: Clear to auscultation, Normal air movement Diagnosis RENAL FAILURE: ESRD Assessment Assessment Problems Medical Problems: (1) End stage renal disease Status: Acute (2) Fluid overload Status: Acute (3) Respiratory distress Status: Acute Plan Plan of Care SEEN ON DIALYSIS AND TOLERATING WELL Comment Review of Relevant I have reviewed the following items serg (where applicable) has been applied. Labs Laboratory Tests Test 02/06/17 16:38 02/06/17 21:04 02/07/17 07:38 02/07/17 11:34 Glucose (Fingerstick) 123 mg/dL (70-99) 163 mg/dL (70-99) 97 mg/dL (70-99) 117 mg/dL (70-99) Test 02/07/17 16:37 02/07/17 21:06 02/08/17 07:12 Glucose (Fingerstick) 150 mg/dL (70-99) 130 mg/dL (70-99) 108 mg/dL (70-99) Laboratory Tests Test 02/07/17 16:37 02/07/17 21:06 02/08/17 07:12 Glucose (Fingerstick) 150 mg/dL (70-99) 130 mg/dL (70-99) 108 mg/dL (70-99) Medications Current Medications Acetaminophen (Tylenol) 650 mg PRN Q6HRS PRN PO FEVER; Start 01/30/17 at 17:45 Ondansetron HCl (Zofran) 4 mg PRN Q6HRS PRN IV NAUSEA/VOMITING Last administered on 01/31/17 10:56; Start 01/30/17 at 17:45 Morphine Sulfate 2 mg PRN Q2HR PRN IV PAIN Last administered on 02/06/17 08:47 ; Start 01/30/17 at 17:45; Stop 02/06/17 at 16:52; Status DC Tramadol HCl (Ultram) 50 mg PRN Q6HRS PRN PO MILD TO MODERATE PAIN Last administered on 02/04/17 02:24; Start 01/30/17 at 17:45 Hydralazine HCl (Apresoline) 10 mg PRN Q4HRS PRN IVP ELEVATED BP, SEE COMMENTS ; Start 01/30/17 at 17:45 Docusate Sodium (Colace) 100 mg PRN DAILY PRN PO CONSTIPATION; Start 01/30/17 at 17:45 Heparin Sodium (Porcine) (Heparin Sq) 5,000 unit Q8HRS SQ Last administered on 02/07/17 14:41; Start 01/30/17 at 22:00 Alprazolam (Xanax) 0.5 mg BID PO Last administered on 02/08/17 09:14; Start at 21:00 Aspirin (Ecotrin) 81 mg DAILYWBKFT PO Last administered on 02/08/17 09:13; Start 01/31/17 at 08:00 Carvedilol (Coreg) 6.25 mg BIDWMEALS PO Last administered on 02/08/17 09:13; Start 01/30/17 at 18:00 Lisinopril (Prinivil) 20 mg DAILY PO Last administered on 02/08/17 09:14; Start 01/31/17 at 09:00 Metformin HCl (Glucophage) 500 mg BIDWMEALS PO ; Start 01/30/17 at 18:00; Stop at 18:00; Status DC Nitroglycerin (Nitrostat) 0.4 mg PRN Q5MIN PRN SL CHEST PAIN; Start 01/30/17 at 17:45 Oxycodone/ Acetaminophen (Percocet 10/325) 1 tab PRN Q6HRS PRN PO MODERATE TO SEVERE PAIN Last administered on 02/06/17 18:39; Start 01/30/17 at 17:45 Sertraline HCl (Zoloft) 50 mg DAILY PO Last administered on 02/08/17 09:14; Start 01/31/17 at 09:00 Pioglitazone HCl (Actos) 30 mg DAILY PO Last administered on 02/08/17 09:14; Start 01/31/17 at 09:00 Sevelamer Carbonate (Renvela) 400 mg BIDWMEALS PO Last administered on 09:14; Start 01/30/17 at 18:00 Insulin Aspart (NovoLOG) 0-9 UNITS TIDWMEALS SQ Last administered on 02/05/17 12:19; Start 01/31/17 at 08:00 Dextrose (Dextrose 50%-Water Syringe) 12.5 gm PRN Q15MIN PRN IV SEE COMMENTS; Start 01/30/17 at 17:45 Albuterol Sulfate (Ventolin Neb Soln) 2.5 mg PRN Q4HRS PRN NEB COUGH Last administered on 01/31/17 11:53; Start 01/30/17 at 17:45 Sodium Chloride 1,000 ml @ 1,000 mls/hr Q1H PRN IV hypotension; Start 01/31/17 at 09:00; Stop 01/31/17 at 16:00; Status DC Diphenhydramine HCl (Benadryl) 25 mg 1X PRN PRN IV ITCHING; Start 01/31/17 at 09 :00; Stop 01/31/17 at 16:00; Status DC Diphenhydramine HCl (Benadryl) 25 mg 1X PRN PRN IV ITCHING; Start 01/31/17 at 09 :00; Stop 01/31/17 at 16:00; Status DC Sodium Chloride 1,000 ml @ 400 mls/hr Q2H30M PRN IV PATENCY; Start 01/31/17 at 09:00; Stop 01/31/17 at 16:00; Status DC Info (PHARMACY MONITORING -- do not chart) 1 each PRN DAILY PRN MC SEE COMMENTS ; Start 01/31/17 at 09:00 Lidocaine HCl (Xylocaine-Mpf 1% Vial) 0.5 ml 1X STAT ID Last administered on 09:40; Start 01/31/17 at 08:51; Stop 01/31/17 at 08:56; Status DC Lidocaine HCl (Xylocaine-Mpf 1% Vial) 2 ml 1X ONCE INJ ; Start 02/01/17 at 09:45 ; Stop 02/01/17 at 09:46; Status DC Sodium Chloride 1,000 ml @ 1,000 mls/hr Q1H PRN IV hypotension; Start 02/03/17 at 07:22; Stop 02/03/17 at 13:21; Status DC Diphenhydramine HCl (Benadryl) 25 mg 1X PRN PRN IV ITCHING; Start 02/03/17 at 07 :30; Stop 02/04/17 at 07:29; Status DC Diphenhydramine HCl (Benadryl) 25 mg 1X PRN PRN IV ITCHING; Start 02/03/17 at 07 :30; Stop 02/04/17 at 07:29; Status DC Sodium Chloride 1,000 ml @ 400 mls/hr Q2H30M PRN IV PATENCY; Start 02/03/17 at 07:22; Stop 02/03/17 at 19:21; Status DC Info (PHARMACY MONITORING -- do not chart) 1 each PRN DAILY PRN MC SEE COMMENTS ; Start 02/03/17 at 07:30; Status UNV Sertraline HCl (Zoloft) 50 mg QHS PO Last administered on 02/06/17t 20:59; Start 02/04/17 at 21:00 Sodium Chloride 1,000 ml @ 1,000 mls/hr Q1H PRN IV hypotension; Start 02/06/17 at 10:17; Stop 02/06/17 at 16:16; Status DC Diphenhydramine HCl (Benadryl) 25 mg 1X PRN PRN IV ITCHING; Start 02/06/17 at 10 :30; Stop 02/07/17 at 10:29; Status DC Diphenhydramine HCl (Benadryl) 25 mg 1X PRN PRN IV ITCHING; Start 02/06/17 at 10 :30; Stop 02/07/17 at 10:29; Status DC Sodium Chloride 1,000 ml @ 400 mls/hr Q2H30M PRN IV PATENCY; Start 02/06/17 at 10:17; Stop 02/06/17 at 22:16; Status DC Info (PHARMACY MONITORING -- do not chart) 1 each PRN DAILY PRN MC SEE COMMENTS ; Start 02/06/17 at 10:30; Status UNV Lidocaine HCl (Xylocaine-Mpf 1% Vial) 0.5 ml 1X STAT ID Last administered on t 11:17; Start 02/06/17 at 11:04; Stop 02/06/17 at 11:11; Status DC Lidocaine HCl (Xylocaine-Mpf 1% Vial) 2 ml STK-MED ONCE .ROUTE ; Start 02/08/17 at 11:07; Stop 02/08/17 at 11:08; Status DC Active Scripts Active Percocet 5-325 Mg Tablet (Oxycodone/Acetaminophen) 1 Each Tablet 1 Tab PO PRN Q6HRS PRN Xanax (Alprazolam) 0.25 Mg Tablet 1 Tab PO BID Renagel (Sevelamer Hcl) 400 Mg Tablet 400 Mg PO BID Aspirin Ec (Aspirin) 81 Mg Tablet.dr 81 Mg PO DAILYWBKFT Reported Mupirocin Ointment (Mupirocin) 22 Gm Oint...g. 1 Bradly TP BID PRN Nitrostat (Nitroglycerin) 0.4 Mg Tab.subl 0.4 Mg SL PRN Q5MIN PRN Actos (Pioglitazone Hcl) 30 Mg Tablet 1 Tab PO DAILY Zoloft (Sertraline Hcl) 50 Mg Tablet 1 Tab PO DAILY Carvedilol 6.25 Mg Tablet 1 Tab PO BID Lisinopril 40 Mg Tablet 0.5 Tab PO DAILY Metformin Hcl 500 Mg Tablet 1 Tab PO BID Vitals/I & O Vital Sign - Last 24 Hours 02/07/17 02/07/17 02/07/17 02/07/17 15:00 17:27 19:00 20:00 Temp 98.1 97.7 98.1 97.7 Pulse 70 70 63 Resp 17 18 B/P (MAP) 135/65 (88) 135/65 117/57 (77) Pulse Ox 97 97 O2 Delivery Nasal Cannula Room Air Nasal Cannula O2 Flow Rate 2.0 2.0 2.0 02/07/17 02/08/17 02/08/17 02/08/17 23:00 03:00 07:00 08:00 Temp 96.8 97.7 96.6 96.8 97.7 96.6 Pulse 63 70 68 Resp 18 18 16 B/P (MAP) 124/65 (84) 105/60 (75) 113/63 (80) Pulse Ox 97 99 100 O2 Delivery Room Air Room Air Nasal Cannula Nasal Cannula O2 Flow Rate 2.0 2.0 2.0 2.0 02/08/17 02/08/17 02/08/17 02/08/17 09:13 09:14 10:56 10:56 Temp 97.7 97.7 Pulse 68 68 65 Resp 16 B/P (MAP) 113/63 113/63 99/45 (63) 101/46 (64) Pulse Ox 100 O2 Delivery Nasal Cannula O2 Flow Rate 2.0 Intake and Output 02/07/17 02/07/17 02/08/17 15:00 23:00 07:00 Intake Total 340 ml Output Total 1 ml 0 ml Balance 339 ml 0 ml SHAUN HERNANDEZ MD Feb 08, 2017 14:00
[2017-02-08] MEDS ORDERED: IV NORMAL SALINE 500ML BAG 500 ML IV ONE (15:00)
[2017-02-08] MEDS: DOCUSATE SODIUM 100 MG CAPSULE. PO PRN (20:46)
[2017-02-09 03:00] VITALS: BP 136/73
[2017-02-09] MEDS: HEPARIN PF for SUB-Q USE 5,000 UNIT/0.5 ML VIAL. SQ SCH ×3 (05:52→20:37)
[2017-02-09 07:00] VITALS: BP 141/77
[2017-02-09] MEDS: ALPRAZolam 0.5 MG TABLET PO SCH ×2 (07:57→20:37)
[2017-02-09] MEDS: SERTRALINE 50 MG TABLET. PO SCH ×2 (07:57→20:37)
[2017-02-09] MEDS: SEVELAMER CARBONATE 800 MG TABLET. PO SCH ×2 (07:57→17:12)
[2017-02-09] MEDS: LISINOPRIL 20 MG TABLET PO SCH (07:57)
[2017-02-09] MEDS: CARVEDILOL 6.25 MG TABLET. PO SCH ×2 (07:58→17:11)
[2017-02-09] MEDS: ASPIRIN ENTERIC COATED 81 MG TABLET.DR. PO SCH (07:58)
[2017-02-09] MEDS: DOCUSATE SODIUM 100 MG CAPSULE. PO PRN (07:58)
[2017-02-09] MEDS: PIOGLITAZONE 15 MG TABLET. PO SCH (07:58)
[2017-02-09] MEDS: INSULIN ASPART 300 UNITS/3 ML INSULN.PEN SQ SCH ×3 (08:00→16:49)
[2017-02-09 10:49] VITALS: BP 116/69
[2017-02-09 15:00] VITALS: BP 116/65
--- NOTE | 2017-02-09 15:39 | PDOC ---
PROGRESS NOTES Chief Complaint Chief Complaint 1. Fluid overload: 2/2 CHF and ESRD, exacerbated by med noncompliance, incl HD. now resolved. frequent cause for admissions 2. ESRD: missed HD x2 weeks prior to admit; now regular, and lytes well controlled 3. CHF exacerbation: systolic (EF 30%). AICD in place. resolved 4. Afib: s/p ablation and pacer placement. no acute issues 5. DM2: borderline; not on insulin 6. HTN: well controlled on lisinopril 7. COPD: no acute issues. 8. Anemia: 2/2 ESRD. on EPO 9. umbilical hernia: easily reducible. 10. Chronic body pain: cont home regimen 11. Peripheral neuropathy 12. Chronic constipation 2/2 opioids 13. Depression: d/w pt today: she feels depressed, has no energy to do anything at home . agreeable to trial of zoloft. 14. Protein malnutrition: ESRD and chronic inflammation affecting albumin levels. supplements 15. Dispo: home situation not ideal (lives w/ son, sister recently ), but declines NH placement. awaiting arrangement of O/P HD - d/w SW: difficulties placing due to prior non-compliance. awaiting [id number] approval History of Present Illness History of Present Illness awake, sitting in chair after ambulating with PT Vitals Vitals Vital Signs Date Time Temp Pulse Resp B/P (MAP) Pulse Ox O2 Delivery O2 Flow Rate FiO2 02/09/17 10:49 96.6 73 18 116/69 (85) 100 Nasal Cannula 2.0 96.6 Physical Exam General: Alert, Oriented X3, Cooperative, No acute distress Heart: Regular rate, Normal S1, Normal S2, No murmurs, Gallops Lungs: Clear Abdomen: Normal bowel sounds, Soft, No tenderness, No hepatosplenomegaly, No masses Extremities: No clubbing, No cyanosis, No edema, Normal pulses, No tenderness/ swelling Skin: No rashes Labs LABS Laboratory Tests Test 02/08/17 16:18 02/08/17 17:05 02/08/17 20:59 02/09/17 07:55 Glucose (Fingerstick) 177 mg/dL (70-99) 204 mg/dL (70-99) 117 mg/dL (70-99) 100 mg/dL (70-99) Test 6/11/17 11:00 Glucose (Fingerstick) 124 mg/dL (70-99) JOY MONAE MD Feb 09, 2017 15:39
[2017-02-09 19:00] VITALS: BP 119/61
[2017-02-09 22:49] VITALS: BP 139/49
[2017-02-10 03:00] VITALS: BP 121/62
[2017-02-10 04:30] LABS: BASO % 1 % (0-3); EOS % 3 % (0-3); HEMATOCRIT 33.6 % (36.0-47.0); HEMOGLOBIN 10.5 g/dL (12.0-15.5); LYMPH # 1.3 x10^3/uL (1.0-4.8); LYMPH % 46 % (24-48); MEAN CORPUSCULAR HEMOGLOBIN 28 pg (25-35); MEAN CORPUSCULAR HGB CONC 31 g/dL (31-37); MEAN CORPUSCULAR VOLUME 89 fL (79-100); MONO % 14 % (0-9); NEUT % 36 % (31-73); PLATELET COUNT 136 x10^3/uL (140-400); RED BLOOD COUNT 3.77 x10^6/uL (3.50-5.40); RED CELL DISTRIBUTION WIDTH 18.2 % (11.5-14.5); WHITE BLOOD COUNT 2.9 x10^3/uL (4.0-11.0)
[2017-02-10 05:04] LABS: ALBUMIN 3.2 g/dL (3.4-5.0); ALBUMIN/GLOBULIN RATIO 0.7 (1.0-1.7); CALCIUM 9.5 mg/dL (8.5-10.1); CREATININE 5.9 mg/dL (0.6-1.0); TOTAL BILIRUBIN 0.4 mg/dL (0.2-1.0); TOTAL PROTEIN 8.1 g/dL (6.4-8.2)
[2017-02-10] MEDS: HEPARIN PF for SUB-Q USE 5,000 UNIT/0.5 ML VIAL. SQ SCH ×3 (05:37→21:52)
[2017-02-10 07:00] VITALS: BP 117/62
[2017-02-10] MEDS: INSULIN ASPART 300 UNITS/3 ML INSULN.PEN SQ SCH ×3 (08:00→17:00)
[2017-02-10] MEDS: ALPRAZolam 0.5 MG TABLET PO SCH ×2 (09:00→21:49)
[2017-02-10] MEDS: PIOGLITAZONE 15 MG TABLET. PO SCH (09:21)
[2017-02-10] MEDS: LISINOPRIL 20 MG TABLET PO SCH (09:21)
[2017-02-10] MEDS: SERTRALINE 50 MG TABLET. PO SCH ×2 (09:21→21:49)
[2017-02-10] MEDS: SEVELAMER CARBONATE 800 MG TABLET. PO SCH ×2 (09:22→18:33)
[2017-02-10] MEDS: ASPIRIN ENTERIC COATED 81 MG TABLET.DR. PO SCH (09:22)
[2017-02-10] MEDS: CARVEDILOL 6.25 MG TABLET. PO SCH ×2 (09:23→18:33)
--- NOTE | 2017-02-10 11:14 | PDOC ---
Renal-Progress Notes Subjective Notes Notes NONE History of Present Illness Hx of present illness NO CHANGE Vitals Vitals Vital Signs Date Time Temp Pulse Resp B/P (MAP) Pulse Ox O2 Delivery O2 Flow Rate FiO2 02/10/17 09:23 62 117/62 02/10/17 07:00 97.8 18 100 Nasal Cannula 2.0 97.8 Weight Weight [ ] I.O. Intake and Output Intake and Output 02/10/17 07:00 Intake Total 120 ml Output Total 0 ml Balance 120 ml Intake Oral 120 ml Output Urine Total 0 ml Labs Labs Laboratory Tests Test 02/09/17 16:28 02/09/17 20:59 02/10/17 03:30 02/10/17 07:25 Glucose (Fingerstick) 96 mg/dL (70-99) 143 mg/dL (70-99) 100 mg/dL (70-99) White Blood Count 2.9 x10^3/uL (4.0-11.0) Red Blood Count 3.77 x10^6/uL (3.50-5.40) Hemoglobin 10.5 g/dL (12.0-15.5) Hematocrit 33.6 % (36.0-47.0) Mean Corpuscular Volume 89 fL (79-100) Mean Corpuscular Hemoglobin 28 pg (25-35) Mean Corpuscular Hemoglobin Concent 31 g/dL (31-37) Red Cell Distribution Width 18.2 % (11.5-14.5) Platelet Count 136 x10^3/uL (140-400) Neutrophils (%) (Auto) 36 % (31-73) Lymphocytes (%) (Auto) 46 % (24-48) Monocytes (%) (Auto) 14 % (0-9) Eosinophils (%) (Auto) 3 % (0-3) Basophils (%) (Auto) 1 % (0-3) Neutrophils # (Auto) 1.0 x10^3uL (1.8-7.7) Lymphocytes # (Auto) 1.3 x10^3/uL (1.0-4.8) Monocytes # (Auto) 0.4 x10^3/uL (0.0-1.1) Eosinophils # (Auto) 0.1 x10^3/uL (0.0-0.7) Basophils # (Auto) 0.0 x10^3/uL (0.0-0.2) Sodium Level 140 mmol/L (136-145) Potassium Level 4.0 mmol/L (3.5-5.1) Chloride Level 100 mmol/L (98-107) Carbon Dioxide Level 32 mmol/L (21-32) Anion Gap 8 (6-14) Blood Urea Nitrogen 44 mg/dL (7-20) Creatinine 5.9 mg/dL (0.6-1.0) Estimated GFR (Cockcroft-Gault) 9.0 BUN/Creatinine Ratio 7 (6-20) Glucose Level 111 mg/dL (70-99) Calcium Level 9.5 mg/dL (8.5-10.1) Magnesium Level 2.0 mg/dL (1.8-2.4) Total Bilirubin 0.4 mg/dL (0.2-1.0) Aspartate Amino Transf (AST/SGOT) 10 U/L (15-37) Alanine Aminotransferase (ALT/SGPT) 8 U/L (14-59) Alkaline Phosphatase 69 U/L (46-116) Total Protein 8.1 g/dL (6.4-8.2) Albumin 3.2 g/dL (3.4-5.0) Albumin/Globulin Ratio 0.7 (1.0-1.7) Review of Systems Constitutional: yes: no symptom reported Physical Exam General Appearance: no apparent distress Skin: warm Heart: S1S2, RRR Extremities: pulses present, atrophy Neurology: alert Musculoskeletal: Osteoarthritis, Other Assessment Assessment IMP ESRD ANEMIA NON COMPLIANCE VOLUME OVERLOAD - RESOLVED PLAN HD TOMORROW PLACEMENT PENDING NO OP HD UNIT HERE IS WILLING TO ACCEPT HER MAREK WATTS MD Feb 10, 2017 11:14
[2017-02-10 11:58] VITALS: BP 122/74
--- NOTE | 2017-02-10 14:36 | PDOC ---
PROGRESS NOTES Chief Complaint Chief Complaint 1. Fluid overload: 2/2 CHF and ESRD, exacerbated by med noncompliance, incl HD. 2. ESRD: on HD 3. CHF exacerbation: systolic (EF 30%). AICD in place. resolved 4. Afib: s/p ablation and pacer placement. no acute issues 5. DM2: borderline; not on insulin 6. HTN: well controlled on lisinopril 7. COPD: no acute issues. 8. Anemia: 2/2 ESRD. on EPO 9. umbilical hernia: easily reducible. 10. Chronic body pain: cont home regimen 11. Peripheral neuropathy 12. Chronic constipation 2/2 opioids 13. Depression: d/w pt today: she feels depressed, has no energy to do anything at home . agreeable to trial of zoloft. 14. Protein malnutrition: ESRD and chronic inflammation affecting albumin levels. supplements 15. Dispo: home situation not ideal (lives w/ son, sister recently ), but declines NH placement. waiting for SW to find a place to take her as outpt for HD. History of Present Illness History of Present Illness awake, sitting in chair after ambulating with PT Vitals Vitals Vital Signs Date Time Temp Pulse Resp B/P (MAP) Pulse Ox O2 Delivery O2 Flow Rate FiO2 02/10/17 11:58 97.7 68 16 122/74 (90) 100 Nasal Cannula 2.0 97.7 Physical Exam General: Alert, Oriented X3, Cooperative, No acute distress Heart: Regular rate, Normal S1, Normal S2, No murmurs, Gallops Lungs: Clear Abdomen: Normal bowel sounds, Soft, No tenderness, No hepatosplenomegaly, No masses Extremities: No clubbing, No cyanosis, No edema, Normal pulses, No tenderness/ swelling Skin: No rashes Labs LABS Laboratory Tests Test 02/09/17 16:28 02/09/17 20:59 02/10/17 03:30 02/10/17 07:25 Glucose (Fingerstick) 96 mg/dL (70-99) 143 mg/dL (70-99) 100 mg/dL (70-99) White Blood Count 2.9 x10^3/uL (4.0-11.0) Red Blood Count 3.77 x10^6/uL (3.50-5.40) Hemoglobin 10.5 g/dL (12.0-15.5) Hematocrit 33.6 % (36.0-47.0) Mean Corpuscular Volume 89 fL (79-100) Mean Corpuscular Hemoglobin 28 pg (25-35) Mean Corpuscular Hemoglobin Concent 31 g/dL (31-37) Red Cell Distribution Width 18.2 % (11.5-14.5) Platelet Count 136 x10^3/uL (140-400) Neutrophils (%) (Auto) 36 % (31-73) Lymphocytes (%) (Auto) 46 % (24-48) Monocytes (%) (Auto) 14 % (0-9) Eosinophils (%) (Auto) 3 % (0-3) Basophils (%) (Auto) 1 % (0-3) Neutrophils # (Auto) 1.0 x10^3uL (1.8-7.7) Lymphocytes # (Auto) 1.3 x10^3/uL (1.0-4.8) Monocytes # (Auto) 0.4 x10^3/uL (0.0-1.1) Eosinophils # (Auto) 0.1 x10^3/uL (0.0-0.7) Basophils # (Auto) 0.0 x10^3/uL (0.0-0.2) Sodium Level 140 mmol/L (136-145) Potassium Level 4.0 mmol/L (3.5-5.1) Chloride Level 100 mmol/L (98-107) Carbon Dioxide Level 32 mmol/L (21-32) Anion Gap 8 (6-14) Blood Urea Nitrogen 44 mg/dL (7-20) Creatinine 5.9 mg/dL (0.6-1.0) Estimated GFR (Cockcroft-Gault) 9.0 BUN/Creatinine Ratio 7 (6-20) Glucose Level 111 mg/dL (70-99) Calcium Level 9.5 mg/dL (8.5-10.1) Magnesium Level 2.0 mg/dL (1.8-2.4) Total Bilirubin 0.4 mg/dL (0.2-1.0) Aspartate Amino Transf (AST/SGOT) 10 U/L (15-37) Alanine Aminotransferase (ALT/SGPT) 8 U/L (14-59) Alkaline Phosphatase 69 U/L (46-116) Total Protein 8.1 g/dL (6.4-8.2) Albumin 3.2 g/dL (3.4-5.0) Albumin/Globulin Ratio 0.7 (1.0-1.7) Review of Systems Review of Systems no fever, chills, sob or chest pain Assessment and Plan Assessmemt and Plan Problems Medical Problems: (1) End stage renal disease Status: Acute (2) Fluid overload Status: Acute (3) Respiratory distress Status: Acute Problems: Comment Review of Relevant I have reviewed the following items serg (where applicable) has been applied. Labs Laboratory Tests Test 02/08/17 16:18 02/08/17 17:05 02/08/17 20:59 02/09/17 07:55 Glucose (Fingerstick) 177 mg/dL (70-99) 204 mg/dL (70-99) 117 mg/dL (70-99) 100 mg/dL (70-99) Test 02/09/17 11:00 02/09/17 16:28 02/09/17 20:59 02/10/17 03:30 Glucose (Fingerstick) 124 mg/dL (70-99) 96 mg/dL (70-99) 143 mg/dL (70-99) White Blood Count 2.9 x10^3/uL (4.0-11.0) Red Blood Count 3.77 x10^6/uL (3.50-5.40) Hemoglobin 10.5 g/dL (12.0-15.5) Hematocrit 33.6 % (36.0-47.0) Mean Corpuscular Volume 89 fL (79-100) Mean Corpuscular Hemoglobin 28 pg (25-35) Mean Corpuscular Hemoglobin Concent 31 g/dL (31-37) Red Cell Distribution Width 18.2 % (11.5-14.5) Platelet Count 136 x10^3/uL (140-400) Neutrophils (%) (Auto) 36 % (31-73) Lymphocytes (%) (Auto) 46 % (24-48) Monocytes (%) (Auto) 14 % (0-9) Eosinophils (%) (Auto) 3 % (0-3) Basophils (%) (Auto) 1 % (0-3) Neutrophils # (Auto) 1.0 x10^3uL (1.8-7.7) Lymphocytes # (Auto) 1.3 x10^3/uL (1.0-4.8) Monocytes # (Auto) 0.4 x10^3/uL (0.0-1.1) Eosinophils # (Auto) 0.1 x10^3/uL (0.0-0.7) Basophils # (Auto) 0.0 x10^3/uL (0.0-0.2) Sodium Level 140 mmol/L (136-145) Potassium Level 4.0 mmol/L (3.5-5.1) Chloride Level 100 mmol/L (98-107) Carbon Dioxide Level 32 mmol/L (21-32) Anion Gap 8 (6-14) Blood Urea Nitrogen 44 mg/dL (7-20) Creatinine 5.9 mg/dL (0.6-1.0) Estimated GFR (Cockcroft-Gault) 9.0 BUN/Creatinine Ratio 7 (6-20) Glucose Level 111 mg/dL (70-99) Calcium Level 9.5 mg/dL (8.5-10.1) Magnesium Level 2.0 mg/dL (1.8-2.4) Total Bilirubin 0.4 mg/dL (0.2-1.0) Aspartate Amino Transf (AST/SGOT) 10 U/L (15-37) Alanine Aminotransferase (ALT/SGPT) 8 U/L (14-59) Alkaline Phosphatase 69 U/L (46-116) Total Protein 8.1 g/dL (6.4-8.2) Albumin 3.2 g/dL (3.4-5.0) Albumin/Globulin Ratio 0.7 (1.0-1.7) Test 02/10/17 07:25 Glucose (Fingerstick) 100 mg/dL (70-99) Laboratory Tests Test 02/09/17 16:28 02/09/17 20:59 02/10/17 03:30 02/10/17 07:25 Glucose (Fingerstick) 96 mg/dL (70-99) 143 mg/dL (70-99) 100 mg/dL (70-99) White Blood Count 2.9 x10^3/uL (4.0-11.0) Red Blood Count 3.77 x10^6/uL (3.50-5.40) Hemoglobin 10.5 g/dL (12.0-15.5) Hematocrit 33.6 % (36.0-47.0) Mean Corpuscular Volume 89 fL (79-100) Mean Corpuscular Hemoglobin 28 pg (25-35) Mean Corpuscular Hemoglobin Concent 31 g/dL (31-37) Red Cell Distribution Width 18.2 % (11.5-14.5) Platelet Count 136 x10^3/uL (140-400) Neutrophils (%) (Auto) 36 % (31-73) Lymphocytes (%) (Auto) 46 % (24-48) Monocytes (%) (Auto) 14 % (0-9) Eosinophils (%) (Auto) 3 % (0-3) Basophils (%) (Auto) 1 % (0-3) Neutrophils # (Auto) 1.0 x10^3uL (1.8-7.7) Lymphocytes # (Auto) 1.3 x10^3/uL (1.0-4.8) Monocytes # (Auto) 0.4 x10^3/uL (0.0-1.1) Eosinophils # (Auto) 0.1 x10^3/uL (0.0-0.7) Basophils # (Auto) 0.0 x10^3/uL (0.0-0.2) Sodium Level 140 mmol/L (136-145) Potassium Level 4.0 mmol/L (3.5-5.1) Chloride Level 100 mmol/L (98-107) Carbon Dioxide Level 32 mmol/L (21-32) Anion Gap 8 (6-14) Blood Urea Nitrogen 44 mg/dL (7-20) Creatinine 5.9 mg/dL (0.6-1.0) Estimated GFR (Cockcroft-Gault) 9.0 BUN/Creatinine Ratio 7 (6-20) Glucose Level 111 mg/dL (70-99) Calcium Level 9.5 mg/dL (8.5-10.1) Magnesium Level 2.0 mg/dL (1.8-2.4) Total Bilirubin 0.4 mg/dL (0.2-1.0) Aspartate Amino Transf (AST/SGOT) 10 U/L (15-37) Alanine Aminotransferase (ALT/SGPT) 8 U/L (14-59) Alkaline Phosphatase 69 U/L (46-116) Total Protein 8.1 g/dL (6.4-8.2) Albumin 3.2 g/dL (3.4-5.0) Albumin/Globulin Ratio 0.7 (1.0-1.7) Medications Current Medications Acetaminophen (Tylenol) 650 mg PRN Q6HRS PRN PO FEVER; Start 01/30/17 at 17:45 Ondansetron HCl (Zofran) 4 mg PRN Q6HRS PRN IV NAUSEA/VOMITING Last administered on 01/31/17 10:56; Start 01/30/17 at 17:45 Morphine Sulfate 2 mg PRN Q2HR PRN IV PAIN Last administered on 02/06/17 08:47 ; Start 01/30/17 at 17:45; Stop 02/06/17 at 16:52; Status DC Tramadol HCl (Ultram) 50 mg PRN Q6HRS PRN PO MILD TO MODERATE PAIN Last administered on 02/04/17 02:24; Start 01/30/17 at 17:45 Hydralazine HCl (Apresoline) 10 mg PRN Q4HRS PRN IVP ELEVATED BP, SEE COMMENTS ; Start 01/30/17 at 17:45 Docusate Sodium (Colace) 100 mg PRN DAILY PRN PO CONSTIPATION Last administered on 02/09/17 07:58; Start 01/30/17 at 17:45 Heparin Sodium (Porcine) (Heparin Sq) 5,000 unit Q8HRS SQ Last administered on 02/08/17 20:49; Start 01/30/17 at 22:00 Alprazolam (Xanax) 0.5 mg BID PO Last administered on 02/10/17 09:00; Start at 21:00 Aspirin (Ecotrin) 81 mg DAILYWBKFT PO Last administered on 02/10/17 09:22; Start 01/31/17 at 08:00 Carvedilol (Coreg) 6.25 mg BIDWMEALS PO Last administered on 02/10/17 09:23; Start 01/30/17 at 18:00 Lisinopril (Prinivil) 20 mg DAILY PO Last administered on 02/10/17 09:21; Start 01/31/17 at 09:00 Metformin HCl (Glucophage) 500 mg BIDWMEALS PO ; Start 01/30/17 at 18:00; Stop at 18:00; Status DC Nitroglycerin (Nitrostat) 0.4 mg PRN Q5MIN PRN SL CHEST PAIN; Start 01/30/17 at 17:45 Oxycodone/ Acetaminophen (Percocet 10/325) 1 tab PRN Q6HRS PRN PO MODERATE TO SEVERE PAIN Last administered on 02/06/17 18:39; Start 01/30/17 at 17:45 Sertraline HCl (Zoloft) 50 mg DAILY PO Last administered on 02/10/17 09:21; Start 01/31/17 at 09:00 Pioglitazone HCl (Actos) 30 mg DAILY PO Last administered on 02/10/17 09:21; Start 01/31/17 at 09:00 Sevelamer Carbonate (Renvela) 400 mg BIDWMEALS PO Last administered on 09:22; Start 01/30/17 at 18:00 Insulin Aspart (NovoLOG) 0-9 UNITS TIDWMEALS SQ Last administered on 02/08/17 17:30; Start 01/31/17 at 08:00 Dextrose (Dextrose 50%-Water Syringe) 12.5 gm PRN Q15MIN PRN IV SEE COMMENTS; Start 01/30/17 at 17:45 Albuterol Sulfate (Ventolin Neb Soln) 2.5 mg PRN Q4HRS PRN NEB COUGH Last administered on 01/31/17 11:53; Start 01/30/17 at 17:45 Sodium Chloride 1,000 ml @ 1,000 mls/hr Q1H PRN IV hypotension; Start 01/31/17 at 09:00; Stop 01/31/17 at 16:00; Status DC Diphenhydramine HCl (Benadryl) 25 mg 1X PRN PRN IV ITCHING; Start 01/31/17 at 09 :00; Stop 01/31/17 at 16:00; Status DC Diphenhydramine HCl (Benadryl) 25 mg 1X PRN PRN IV ITCHING; Start 01/31/17 at 09 :00; Stop 01/31/17 at 16:00; Status DC Sodium Chloride 1,000 ml @ 400 mls/hr Q2H30M PRN IV PATENCY; Start 01/31/17 at 09:00; Stop 01/31/17 at 16:00; Status DC Info (PHARMACY MONITORING -- do not chart) 1 each PRN DAILY PRN MC SEE COMMENTS ; Start 01/31/17 at 09:00 Lidocaine HCl (Xylocaine-Mpf 1% Vial) 0.5 ml 1X STAT ID Last administered on t 09:40; Start 01/31/17 at 08:51; Stop 01/31/17 at 08:56; Status DC Lidocaine HCl (Xylocaine-Mpf 1% Vial) 2 ml 1X ONCE INJ ; Start 02/01/17 at 09:45 ; Stop 02/01/17 at 09:46; Status DC Sodium Chloride 1,000 ml @ 1,000 mls/hr Q1H PRN IV hypotension; Start 02/03/17 at 07:22; Stop 02/03/17 at 13:21; Status DC Diphenhydramine HCl (Benadryl) 25 mg 1X PRN PRN IV ITCHING; Start 02/03/17 at 07 :30; Stop 02/04/17 at 07:29; Status DC Diphenhydramine HCl (Benadryl) 25 mg 1X PRN PRN IV ITCHING; Start 02/03/17 at 07 :30; Stop 02/04/17 at 07:29; Status DC Sodium Chloride 1,000 ml @ 400 mls/hr Q2H30M PRN IV PATENCY; Start 02/03/17 at 07:22; Stop 02/03/17 at 19:21; Status DC Info (PHARMACY MONITORING -- do not chart) 1 each PRN DAILY PRN MC SEE COMMENTS ; Start 02/03/17 at 07:30; Status UNV Sertraline HCl (Zoloft) 50 mg QHS PO Last administered on 02/09/17t 20:37; Start 02/04/17 at 21:00 Sodium Chloride 1,000 ml @ 1,000 mls/hr Q1H PRN IV hypotension; Start 02/06/17 at 10:17; Stop 02/06/17 at 16:16; Status DC Diphenhydramine HCl (Benadryl) 25 mg 1X PRN PRN IV ITCHING; Start 02/06/17 at 10 :30; Stop 02/07/17 at 10:29; Status DC Diphenhydramine HCl (Benadryl) 25 mg 1X PRN PRN IV ITCHING; Start 02/06/17 at 10 :30; Stop 02/07/17 at 10:29; Status DC Sodium Chloride 1,000 ml @ 400 mls/hr Q2H30M PRN IV PATENCY; Start 02/06/17 at 10:17; Stop 02/06/17 at 22:16; Status DC Info (PHARMACY MONITORING -- do not chart) 1 each PRN DAILY PRN MC SEE COMMENTS ; Start 02/06/17 at 10:30; Status UNV Lidocaine HCl (Xylocaine-Mpf 1% Vial) 0.5 ml 1X STAT ID Last administered on 11:17; Start 02/06/17 at 11:04; Stop 02/06/17 at 11:11; Status DC Lidocaine HCl (Xylocaine-Mpf 1% Vial) 2 ml STK-MED ONCE .ROUTE ; Start 02/08/17 at 11:07; Stop 02/08/17 at 11:08; Status DC Sodium Chloride 500 ml @ 500 mls/hr 1X ONCE IV Last administered on 15:00; Start 02/08/17 at 15:00; Stop 02/08/17 at 18:43; Status DC Lidocaine HCl (Xylocaine-Mpf 1% Vial) 2 ml STK-MED ONCE .ROUTE ; Start 02/08/17 at 11:00; Stop 02/10/17 at 08:08; Status DC Active Scripts Active Percocet 5-325 Mg Tablet (Oxycodone/Acetaminophen) 1 Each Tablet 1 Tab PO PRN Q6HRS PRN Xanax (Alprazolam) 0.25 Mg Tablet 1 Tab PO BID Renagel (Sevelamer Hcl) 400 Mg Tablet 400 Mg PO BID Aspirin Ec (Aspirin) 81 Mg Tablet.dr 81 Mg PO DAILYWBKFT Reported Mupirocin Ointment (Mupirocin) 22 Gm Oint...g. 1 Bradly TP BID PRN Nitrostat (Nitroglycerin) 0.4 Mg Tab.subl 0.4 Mg SL PRN Q5MIN PRN Actos (Pioglitazone Hcl) 30 Mg Tablet 1 Tab PO DAILY Zoloft (Sertraline Hcl) 50 Mg Tablet 1 Tab PO DAILY Carvedilol 6.25 Mg Tablet 1 Tab PO BID Lisinopril 40 Mg Tablet 0.5 Tab PO DAILY Metformin Hcl 500 Mg Tablet 1 Tab PO BID Vitals/I & O Vital Sign - Last 24 Hours 02/09/17 02/09/17 02/09/17 02/09/17 15:00 17:11 19:00 20:00 Temp 97.8 97.9 97.8 97.9 Pulse 67 73 67 Resp 18 16 B/P (MAP) 116/65 (82) 116/69 119/61 (80) Pulse Ox 100 100 O2 Delivery Nasal Cannula Nasal Cannula Nasal Cannula O2 Flow Rate 2.0 2.0 2.0 02/09/17 02/10/17 02/10/17 02/10/17 22:49 03:00 07:00 08:00 Temp 97.9 96.4 97.8 97.9 96.4 97.8 Pulse 67 68 62 Resp 16 16 18 B/P (MAP) 139/49 (79) 121/62 (81) 117/62 (80) Pulse Ox 95 100 100 O2 Delivery Nasal Cannula Nasal Cannula Nasal Cannula Nasal Cannula O2 Flow Rate 2.0 2.0 2.0 2.0 02/10/17 02/10/17 02/10/17 09:21 09:23 11:58 Temp 97.7 97.7 Pulse 62 62 68 Resp 16 B/P (MAP) 117/62 117/62 122/74 (90) Pulse Ox 100 O2 Delivery Nasal Cannula O2 Flow Rate 2.0 Intake and Output 02/09/17 02/09/17 02/10/17 15:00 23:00 07:00 Intake Total 120 ml 0 ml Output Total 0 ml Balance 120 ml 0 ml SARAHI PHILLIPS MD Feb 10, 2017 14:36
[2017-02-10 15:23] VITALS: BP 114/62
[2017-02-10 19:00] VITALS: BP 119/74
[2017-02-10 23:04] VITALS: BP 109/56
[2017-02-11 02:53] VITALS: BP 121/74
[2017-02-11] MEDS: HEPARIN PF for SUB-Q USE 5,000 UNIT/0.5 ML VIAL. SQ SCH ×2 (04:38→14:00)
[2017-02-11 07:00] VITALS: BP 139/88
[2017-02-11] MEDS: SEVELAMER CARBONATE 800 MG TABLET. PO SCH ×2 (08:00→17:32)
[2017-02-11] MEDS: INSULIN ASPART 300 UNITS/3 ML INSULN.PEN SQ SCH ×3 (08:00→17:00)
[2017-02-11] MEDS: ALPRAZolam 0.5 MG TABLET PO SCH (10:18)
[2017-02-11] MEDS: ASPIRIN ENTERIC COATED 81 MG TABLET.DR. PO SCH (10:18)
[2017-02-11] MEDS: LISINOPRIL 20 MG TABLET PO SCH (10:18)
[2017-02-11] MEDS: CARVEDILOL 6.25 MG TABLET. PO SCH ×2 (10:19→17:00)
[2017-02-11] MEDS: SERTRALINE 50 MG TABLET. PO SCH (10:19)
--- NOTE | 2017-02-11 10:50 | PDOC ---
Renal-Progress Notes Subjective Notes Notes NONE History of Present Illness Hx of present illness NO CHANGE Vitals Vitals Vital Signs Date Time Temp Pulse Resp B/P (MAP) Pulse Ox O2 Delivery O2 Flow Rate FiO2 02/11/17 10:19 66 139/88 02/11/17 08:27 Nasal Cannula 2.0 02/11/17 07:00 98.1 18 97 98.1 Weight Weight [ ] I.O. Intake and Output Intake and Output 02/11/17 06:59 Intake Total 120 ml Output Total 0 ml Balance 120 ml Intake Oral 120 ml Output Urine Total 0 ml # Voids 1 Labs Labs Laboratory Tests Test 02/10/17 10:58 02/10/17 16:02 02/10/17 20:44 02/11/17 07:25 Glucose (Fingerstick) 124 mg/dL (70-99) 122 mg/dL (70-99) 212 mg/dL (70-99) 87 mg/dL (70-99) Review of Systems Constitutional: yes: no symptom reported Physical Exam General Appearance: no apparent distress Skin: warm Heart: S1S2, RRR Extremities: pulses present, atrophy Neurology: alert Musculoskeletal: Osteoarthritis, Other Assessment Assessment IMP ESRD ANEMIA NON COMPLIANCE VOLUME OVERLOAD - RESOLVED PLAN HD TODAY UF TO DW PLACEMENT PENDING MAREK WATTS MD Feb 11, 2017 10:50
[2017-02-11 11:00] VITALS: BP 111/64
[2017-02-11] MEDS: PIOGLITAZONE 15 MG TABLET. PO SCH (12:49)
[2017-02-11] MEDS ORDERED: DIALYSIS PATIENT. MC PRN (13:15)
[2017-02-11] MEDS ORDERED: LIDOCAINE 1% PF 2 ML VIAL. INJ STA (13:49)
--- NOTE | 2017-02-11 13:55 | PDOC ---
PROGRESS NOTES Chief Complaint Chief Complaint 1. Fluid overload: 2/2 CHF and ESRD, exacerbated by med noncompliance, incl HD. 2. ESRD: on HD 3. CHF exacerbation: systolic (EF 30%). AICD in place. resolved 4. Afib: s/p ablation and pacer placement. no acute issues 5. DM2: borderline; not on insulin 6. HTN: well controlled on lisinopril 7. COPD: no acute issues. 8. Anemia: 2/2 ESRD. on EPO 9. umbilical hernia: easily reducible. 10. Chronic body pain: cont home regimen 11. Peripheral neuropathy 12. Chronic constipation 2/2 opioids 13. Depression: d/w pt today: she feels depressed, has no energy to do anything at home . agreeable to trial of zoloft. 14. Protein malnutrition: ESRD and chronic inflammation affecting albumin levels. supplements 15. Dispo: home situation not ideal (lives w/ son, sister recently ), but declines NH placement. waiting for SW to find a place to take her as outpt for HD, however, so far , all outpt HD clinic from her insurance refused her. Pt insist to go home today and will sign AMA. told pt that to cont call her insurance and see if anywhere can take her for outpt HD, she also can come to our ER for HD if she wants. pt agreed, but likely will be uncompliance as previous history. History of Present Illness History of Present Illness awake, sitting in chair after ambulating with PT Vitals Vitals Vital Signs Date Time Temp Pulse Resp B/P (MAP) Pulse Ox O2 Delivery O2 Flow Rate FiO2 02/11/17 11:00 97.7 61 17 111/64 (80) 100 Nasal Cannula 2.0 97.7 Physical Exam General: Alert, Oriented X3, Cooperative, No acute distress Heart: Regular rate, Normal S1, Normal S2, No murmurs, Gallops Lungs: Clear Abdomen: Normal bowel sounds, Soft, No tenderness, No hepatosplenomegaly, No masses Extremities: No clubbing, No cyanosis, No edema, Normal pulses, No tenderness/ swelling Skin: No rashes Labs LABS Laboratory Tests Test 02/10/17 16:02 02/10/17 20:44 02/11/17 07:25 02/11/17 11:50 Glucose (Fingerstick) 122 mg/dL (70-99) 212 mg/dL (70-99) 87 mg/dL (70-99) 144 mg/dL (70-99) Review of Systems Review of Systems no fever, chills, sob or chest pain Assessment and Plan Assessmemt and Plan Problems Medical Problems: (1) End stage renal disease Status: Acute (2) Fluid overload Status: Acute (3) Respiratory distress Status: Acute Problems: Comment Review of Relevant I have reviewed the following items serg (where applicable) has been applied. Labs Laboratory Tests Test 02/09/17 16:28 02/09/17 20:59 02/10/17 03:30 02/10/17 07:25 Glucose (Fingerstick) 96 mg/dL (70-99) 143 mg/dL (70-99) 100 mg/dL (70-99) White Blood Count 2.9 x10^3/uL (4.0-11.0) Red Blood Count 3.77 x10^6/uL (3.50-5.40) Hemoglobin 10.5 g/dL (12.0-15.5) Hematocrit 33.6 % (36.0-47.0) Mean Corpuscular Volume 89 fL (79-100) Mean Corpuscular Hemoglobin 28 pg (25-35) Mean Corpuscular Hemoglobin Concent 31 g/dL (31-37) Red Cell Distribution Width 18.2 % (11.5-14.5) Platelet Count 136 x10^3/uL (140-400) Neutrophils (%) (Auto) 36 % (31-73) Lymphocytes (%) (Auto) 46 % (24-48) Monocytes (%) (Auto) 14 % (0-9) Eosinophils (%) (Auto) 3 % (0-3) Basophils (%) (Auto) 1 % (0-3) Neutrophils # (Auto) 1.0 x10^3uL (1.8-7.7) Lymphocytes # (Auto) 1.3 x10^3/uL (1.0-4.8) Monocytes # (Auto) 0.4 x10^3/uL (0.0-1.1) Eosinophils # (Auto) 0.1 x10^3/uL (0.0-0.7) Basophils # (Auto) 0.0 x10^3/uL (0.0-0.2) Sodium Level 140 mmol/L (136-145) Potassium Level 4.0 mmol/L (3.5-5.1) Chloride Level 100 mmol/L (98-107) Carbon Dioxide Level 32 mmol/L (21-32) Anion Gap 8 (6-14) Blood Urea Nitrogen 44 mg/dL (7-20) Creatinine 5.9 mg/dL (0.6-1.0) Estimated GFR (Cockcroft-Gault) 9.0 BUN/Creatinine Ratio 7 (6-20) Glucose Level 111 mg/dL (70-99) Calcium Level 9.5 mg/dL (8.5-10.1) Magnesium Level 2.0 mg/dL (1.8-2.4) Total Bilirubin 0.4 mg/dL (0.2-1.0) Aspartate Amino Transf (AST/SGOT) 10 U/L (15-37) Alanine Aminotransferase (ALT/SGPT) 8 U/L (14-59) Alkaline Phosphatase 69 U/L (46-116) Total Protein 8.1 g/dL (6.4-8.2) Albumin 3.2 g/dL (3.4-5.0) Albumin/Globulin Ratio 0.7 (1.0-1.7) Test 02/10/17 10:58 02/10/17 16:02 02/10/17 20:44 02/11/17 07:25 Glucose (Fingerstick) 124 mg/dL (70-99) 122 mg/dL (70-99) 212 mg/dL (70-99) 87 mg/dL (70-99) Test 02/11/17 11:50 Glucose (Fingerstick) 144 mg/dL (70-99) Laboratory Tests Test 02/10/17 16:02 02/10/17 20:44 02/11/17 07:25 02/11/17 11:50 Glucose (Fingerstick) 122 mg/dL (70-99) 212 mg/dL (70-99) 87 mg/dL (70-99) 144 mg/dL (70-99) Medications Current Medications Acetaminophen (Tylenol) 650 mg PRN Q6HRS PRN PO FEVER; Start 01/30/17 at 17:45 Ondansetron HCl (Zofran) 4 mg PRN Q6HRS PRN IV NAUSEA/VOMITING Last administered on 01/31/17 10:56; Start 01/30/17 at 17:45 Morphine Sulfate 2 mg PRN Q2HR PRN IV PAIN Last administered on 02/06/17 08:47 ; Start 01/30/17 at 17:45; Stop 02/06/17 at 16:52; Status DC Tramadol HCl (Ultram) 50 mg PRN Q6HRS PRN PO MILD TO MODERATE PAIN Last administered on 02/04/17 02:24; Start 01/30/17 at 17:45 Hydralazine HCl (Apresoline) 10 mg PRN Q4HRS PRN IVP ELEVATED BP, SEE COMMENTS ; Start 01/30/17 at 17:45 Docusate Sodium (Colace) 100 mg PRN DAILY PRN PO CONSTIPATION Last administered on 02/09/17 07:58; Start 01/30/17 at 17:45 Heparin Sodium (Porcine) (Heparin Sq) 5,000 unit Q8HRS SQ Last administered on 02/08/17 20:49; Start 01/30/17 at 22:00 Alprazolam (Xanax) 0.5 mg BID PO Last administered on 02/11/17 10:18; Start at 21:00 Aspirin (Ecotrin) 81 mg DAILYWBKFT PO Last administered on 02/11/17 10:18; Start 01/31/17 at 08:00 Carvedilol (Coreg) 6.25 mg BIDWMEALS PO Last administered on 02/11/17 10:19; Start 01/30/17 at 18:00 Lisinopril (Prinivil) 20 mg DAILY PO Last administered on 02/11/17 10:18; Start 01/31/17 at 09:00 Metformin HCl (Glucophage) 500 mg BIDWMEALS PO ; Start 01/30/17 at 18:00; Stop at 18:00; Status DC Nitroglycerin (Nitrostat) 0.4 mg PRN Q5MIN PRN SL CHEST PAIN; Start 01/30/17 at 17:45 Oxycodone/ Acetaminophen (Percocet 10/325) 1 tab PRN Q6HRS PRN PO MODERATE TO SEVERE PAIN Last administered on 02/06/17 18:39; Start 01/30/17 at 17:45 Sertraline HCl (Zoloft) 50 mg DAILY PO Last administered on 02/11/17 10:19; Start 01/31/17 at 09:00 Pioglitazone HCl (Actos) 30 mg DAILY PO Last administered on 02/11/17 12:49; Start 01/31/17 at 09:00 Sevelamer Carbonate (Renvela) 400 mg BIDWMEALS PO Last administered on 18:33; Start 01/30/17 at 18:00 Insulin Aspart (NovoLOG) 0-9 UNITS TIDWMEALS SQ Last administered on 02/08/17 17:30; Start 01/31/17 at 08:00 Dextrose (Dextrose 50%-Water Syringe) 12.5 gm PRN Q15MIN PRN IV SEE COMMENTS; Start 01/30/17 at 17:45 Albuterol Sulfate (Ventolin Neb Soln) 2.5 mg PRN Q4HRS PRN NEB COUGH Last administered on 01/31/17 11:53; Start 01/30/17 at 17:45 Sodium Chloride 1,000 ml @ 1,000 mls/hr Q1H PRN IV hypotension; Start 01/31/17 at 09:00; Stop 01/31/17 at 16:00; Status DC Diphenhydramine HCl (Benadryl) 25 mg 1X PRN PRN IV ITCHING; Start 01/31/17 at 09 :00; Stop 01/31/17 at 16:00; Status DC Diphenhydramine HCl (Benadryl) 25 mg 1X PRN PRN IV ITCHING; Start 01/31/17 at 09 :00; Stop 01/31/17 at 16:00; Status DC Sodium Chloride 1,000 ml @ 400 mls/hr Q2H30M PRN IV PATENCY; Start 01/31/17 at 09:00; Stop 01/31/17 at 16:00; Status DC Info (PHARMACY MONITORING -- do not chart) 1 each PRN DAILY PRN MC SEE COMMENTS ; Start 01/31/17 at 09:00 Lidocaine HCl (Xylocaine-Mpf 1% Vial) 0.5 ml 1X STAT ID Last administered on 09:40; Start 01/31/17 at 08:51; Stop 01/31/17 at 08:56; Status DC Lidocaine HCl (Xylocaine-Mpf 1% Vial) 2 ml 1X ONCE INJ ; Start 02/01/17 at 09:45 ; Stop 02/01/17 at 09:46; Status DC Sodium Chloride 1,000 ml @ 1,000 mls/hr Q1H PRN IV hypotension; Start 02/03/17 at 07:22; Stop 02/03/17 at 13:21; Status DC Diphenhydramine HCl (Benadryl) 25 mg 1X PRN PRN IV ITCHING; Start 02/03/17 at 07 :30; Stop 02/04/17 at 07:29; Status DC Diphenhydramine HCl (Benadryl) 25 mg 1X PRN PRN IV ITCHING; Start 02/03/17 at 07 :30; Stop 02/04/17 at 07:29; Status DC Sodium Chloride 1,000 ml @ 400 mls/hr Q2H30M PRN IV PATENCY; Start 02/03/17 at 07:22; Stop 02/03/17 at 19:21; Status DC Info (PHARMACY MONITORING -- do not chart) 1 each PRN DAILY PRN MC SEE COMMENTS ; Start 02/03/17 at 07:30; Status UNV Sertraline HCl (Zoloft) 50 mg QHS PO Last administered on 02/10/17t 21:49; Start 02/04/17 at 21:00 Sodium Chloride 1,000 ml @ 1,000 mls/hr Q1H PRN IV hypotension; Start 02/06/17 at 10:17; Stop 02/06/17 at 16:16; Status DC Diphenhydramine HCl (Benadryl) 25 mg 1X PRN PRN IV ITCHING; Start 02/06/17 at 10 :30; Stop 02/07/17 at 10:29; Status DC Diphenhydramine HCl (Benadryl) 25 mg 1X PRN PRN IV ITCHING; Start 02/06/17 at 10 :30; Stop 02/07/17 at 10:29; Status DC Sodium Chloride 1,000 ml @ 400 mls/hr Q2H30M PRN IV PATENCY; Start 02/06/17 at 10:17; Stop 02/06/17 at 22:16; Status DC Info (PHARMACY MONITORING -- do not chart) 1 each PRN DAILY PRN MC SEE COMMENTS ; Start 02/06/17 at 10:30; Status UNV Lidocaine HCl (Xylocaine-Mpf 1% Vial) 0.5 ml 1X STAT ID Last administered on t 11:17; Start 02/06/17 at 11:04; Stop 02/06/17 at 11:11; Status DC Lidocaine HCl (Xylocaine-Mpf 1% Vial) 2 ml STK-MED ONCE .ROUTE ; Start 02/08/17 at 11:07; Stop 02/08/17 at 11:08; Status DC Sodium Chloride 500 ml @ 500 mls/hr 1X ONCE IV Last administered on t 15:00; Start 02/08/17 at 15:00; Stop 02/08/17 at 18:43; Status DC Lidocaine HCl (Xylocaine-Mpf 1% Vial) 2 ml STK-MED ONCE .ROUTE ; Start 02/08/17 at 11:00; Stop 02/10/17 at 08:08; Status DC Info (PHARMACY MONITORING -- do not chart) 1 each PRN DAILY PRN MC SEE COMMENTS ; Start 02/11/17 at 13:15; Status UNV Lidocaine HCl (Xylocaine-Mpf 1% Vial) 2 ml 1X STAT INJ ; Start 02/11/17 at 13: 49; Stop 02/11/17 at 13:50; Status UNV Active Scripts Active Percocet 5-325 Mg Tablet (Oxycodone/Acetaminophen) 1 Each Tablet 1 Tab PO PRN Q6HRS PRN Xanax (Alprazolam) 0.25 Mg Tablet 1 Tab PO BID Renagel (Sevelamer Hcl) 400 Mg Tablet 400 Mg PO BID Aspirin Ec (Aspirin) 81 Mg Tablet. 81 Mg PO DAILYWBKFT Reported Mupirocin Ointment (Mupirocin) 22 Gm Oint...g. 1 Bradly TP BID PRN Nitrostat (Nitroglycerin) 0.4 Mg Tab.subl 0.4 Mg SL PRN Q5MIN PRN Actos (Pioglitazone Hcl) 30 Mg Tablet 1 Tab PO DAILY Zoloft (Sertraline Hcl) 50 Mg Tablet 1 Tab PO DAILY Carvedilol 6.25 Mg Tablet 1 Tab PO BID Lisinopril 40 Mg Tablet 0.5 Tab PO DAILY Metformin Hcl 500 Mg Tablet 1 Tab PO BID Vitals/I & O Vital Sign - Last 24 Hours 02/10/17 02/10/17 02/10/17 02/10/17 15:23 18:33 19:00 20:00 Temp 97.7 98.2 97.7 98.2 Pulse 68 68 68 Resp 18 16 B/P (MAP) 114/62 (79) 114/62 119/74 (89) Pulse Ox 100 100 O2 Delivery Nasal Cannula Nasal Cannula Nasal Cannula O2 Flow Rate 2.0 2.0 2.0 02/10/17 02/11/17 02/11/17 02/11/17 23:04 02:53 07:00 08:27 Temp 98.4 97.7 98.1 98.4 97.7 98.1 Pulse 64 66 66 Resp 17 16 18 B/P (MAP) 109/56 (73) 121/74 (90) 139/88 (105) Pulse Ox 100 98 97 O2 Delivery Nasal Cannula Nasal Cannula Nasal Cannula Nasal Cannula O2 Flow Rate 2.0 2.0 2.0 2.0 02/11/17 02/11/17 02/11/17 10:18 10:19 11:00 Temp 97.7 97.7 Pulse 66 66 61 Resp 17 B/P (MAP) 139/88 139/88 111/64 (80) Pulse Ox 100 O2 Delivery Nasal Cannula O2 Flow Rate 2.0 Intake and Output 02/10/17 02/10/17 02/11/17 15:00 23:00 07:00 Intake Total 120 ml 0 ml Output Total 0 ml Balance 120 ml 0 ml SARAHI PHILLIPS MD Feb 11, 2017 13:55
== END 2017-02-11 19:19 | disposition left against medical advice (07) | DRG 291 ==
LOC: ER 16:15 → 5 NORTH 16:32
PROVIDERS: ADMIT Internal Medicine; ATTEND Internal Medicine
PROC: 5A1D60Z (ICD-10-PCS; principal; 2017-02-02)
DX: I50.23 Acute on chronic systolic (congestive) heart failure (principal); N18.6 End stage renal disease; I13.2 Hypertensive heart and chronic kidney disease with heart failure and with stage 5 chronic kidney disease, or end stage renal disease; E46 Unspecified protein-calorie malnutrition; K42.9 Umbilical hernia without obstruction or gangrene; D63.1 Anemia in chronic kidney disease; E11.22 Type 2 diabetes mellitus with diabetic chronic kidney disease; E78.5 Hyperlipidemia, unspecified; F17.210 Nicotine dependence, cigarettes, uncomplicated; F32.9 Major depressive disorder, single episode, unspecified; I25.10 Atherosclerotic heart disease of native coronary artery without angina pectoris; J44.9 Chronic obstructive pulmonary disease, unspecified; K59.03 Drug induced constipation; Z53.21 Procedure and treatment not carried out due to patient leaving prior to being seen by health care provider; I48.91 Unspecified atrial fibrillation; H54.0 Blindness, both eyes; T40.2X5A Adverse effect of other opioids, initial encounter; E11.42 Type 2 diabetes mellitus with diabetic polyneuropathy; Z91.14 Patient's other noncompliance with medication regimen; Z91.19 Patient's noncompliance with other medical treatment and regimen; Z99.2 Dependence on renal dialysis; Z99.81 Dependence on supplemental oxygen; Z90.710 Acquired absence of both cervix and uterus; Z95.810 Presence of automatic (implantable) cardiac defibrillator; Z90.49 Acquired absence of other specified parts of digestive tract; Z83.3 Family history of diabetes mellitus; Z95.1 Presence of aortocoronary bypass graft; Z86.73 Personal history of transient ischemic attack (TIA), and cerebral infarction without residual deficits; Z68.22 Body mass index [BMI] 22.0-22.9, adult; Z89.429 Acquired absence of other toe(s), unspecified side
CPT/HCPCS: 36415; 71010; 80047; 80048; 80053; 82962; 83735; 84100; 85027; 86705; 86706; 87340; 87341; 93005; 94250; 94640; 94760; J1815; J2270; J2405; J7040; 97110; 97116; 97530; 99285-25